=== PATIENT | female | born 1940 | race Caucasian/White ===

== ENCOUNTER 2017-08-13 12:11 | Inpatient (IN) | payer OTHER ==
[~2017-08-13] VITALS: Ht 157.5 cm; Wt 58.4 kg
[~2017-08-13 12:11] MED LIST: PRED50TA PO
[2017-08-13] MEDS ORDERED: SODIUM CHLORIDE 0.9% 1000ML 1,000 ML IV STA (12:53)
--- NOTE | 2017-08-13 12:57 | EMERGENCY ROOM VISIT NOTE ---
History Report prepared by Camilaibheather: Valdo Porras Under the Supervision of: Dr. Boom Oliveira M.D. First contact with patient: 12:48 Chief Complaint: COUGH Stated Complaint: COUGHING,BODY ACHES Nursing Triage Summary: Pt has had a productive cough for the past 3 days. Pt states she has congestion, chills, and runny nose. Pt denies any nausea, vomiting or fever. Pt states she is more SOB with exertion Lungs diminished bilat thru bases Pt HR in the 170's History of Present Illness The patient is a 77 year old female who presents to the Emergency Room with complaints of persistent cough for four days. She states that she has been sick with a cough. She notes shortness of breath with the cough. She notes body aches. She denies any fevers. She reports keeping up with her fluids. She denies any vomiting or diarrhea. She denies any bloody or dark stools. She notes a history of fluttering of the heart, though denies any current cardiac flutters. She denies any chest pain. She is a former smoker 18 years ago. She denies any use of inhalers. She denies taking any blood thinners. Source of History: patient Onset: four days Position: other (global ) Quality: other (cough) Timing: other (persistent) Associated Symptoms: + SOB, No fevers, No chest pain, No vomiting, No diarrhea Note: She notes body aches. She denies any bloody or dark stools or current cardiac flutters. Review of Systems See HPI for pertinent positives & negatives. A total of 10 systems reviewed and were otherwise negative. Past Medical & Surgical Medical Problems: (1) New onset atrial fibrillation (2) No Known Active Medical Problems (3) PNA (pneumonia) Old medical records were reviewed. Nurse's notes were reviewed and I agree with. Family History Diabetes mellitus Hypertension Social History Smoking Status: Former Smoker Smokeless Tobacco Use: No Alcohol Use: none Drug Use: none Marital Status: single Housing Status: lives with family Occupation Status: unemployed Current/Historical Medications Scheduled [Cough Medicine], 1 DOSE PO UD Allergies Coded Allergies: Cefuroxime (Unverified Allergy, Mild, FACIAL SWELLING, 08/13/17) Physical Exam Vital Signs Date Time Temp Pulse Resp B/P (MAP) Pulse Ox O2 Delivery O2 Flow Rate FiO2 08/13/17 14:40 157 154/119 08/13/17 14:05 155 20 136/103 95 Nasal Cannula 08/13/17 12:38 90 Room Air 08/13/17 12:32 167 08/13/17 12:18 36.5 151 20 129/94 92 Room Air Physical Exam General: Non-ill appearing older female in no acute distress. Frequent cough. HEENT: Normal cephalic atraumatic. Pupils are equal round and reactive to light. Extraocular movements are intact. Oropharynx is pink with moist mucous membranes. No swelling of the mouth lips or tongue. Neck: Supple with a midline trachea. No meningeal signs or stiffness, no JVD or bruits. No Stridor. Chest: Clear to auscultation bilaterally. No wheezes or rhonchi. No increased work of breathing. Heart: Tachycardic rate with rapid atrial fibrillation seen on monitor. Abdomen: Soft nontender, nondistended without rebound guarding or rigidity. Extremities: No cyanosis clubbing or mild pedal edema bilaterally. No calf tenderness or assymetry Spine/Back. Non tender to palpation. No CVA tenderness Skin: Good turgor without rashes. Neurologic exam: Cranial nerves two through 12 are intact. Motor and sensation are intact and symmetrical throughout. Medical Decision & Procedures ER Provider Diagnostic Interpretation: Radiology results as stated below per my review and radiologist interpretation: CHEST ONE VIEW PORTABLE CLINICAL HISTORY: 77 years-old Female presenting with CHEST PAIN. TECHNIQUE: Portable upright AP view of the chest was obtained. COMPARISON: 02/27/2006. FINDINGS: Atherosclerosis of aortic arch. Cardiac silhouette top normal in size. New opacity in the right lung base obscuring the right heart margin. Prominence of the right hilum. Osteopenia may be present. Upper abdomen normal. IMPRESSION: 1. Consolidation in the right middle lobe concerning for pneumonia. This should be followed to resolution. 2. Possible right hilar lymphadenopathy, which could be reactive. Electronically signed by: Kendall Farmer M.D. 08/13/2017 1:24 PM Dictated Date/Time: 08/13/2017 1:23 PM Laboratory Results 08/13/17 12:40 Red Blood Count 4.57, Mean Corpuscular Volume 92.3, Mean Corpuscular Hemoglobin 29.5, Mean Corpuscular Hemoglobin Concent 32.0, Mean Platelet Volume 10.5, Neutrophils (%) (Auto) 84.3, Lymphocytes (%) (Auto) 8.8, Monocytes (%) (Auto) 6.1, Eosinophils (%) (Auto) 0.2, Basophils (%) (Auto) 0.2, Neutrophils # (Auto) 10.94, Lymphocytes # (Auto) 1.14, Monocytes # (Auto) 0.79, Eosinophils # (Auto) 0.02, Basophils # (Auto) 0.03 08/13/17 12:40 Test 08/13/17 12:40 08/13/17 12:53 08/13/17 13:17 08/13/17 13:27 White Blood Count 12.97 K/uL (4.8-10.8) Red Blood Count 4.57 M/uL (4.2-5.4) Hemoglobin 13.5 g/dL (12.0-16.0) Hematocrit 42.2 % (37-47) Mean Corpuscular Volume 92.3 fL (80-100) Mean Corpuscular Hemoglobin 29.5 pg (25-34) Mean Corpuscular Hemoglobin Concent 32.0 g/dl (32-36) Platelet Count 196 K/uL (130-400) Mean Platelet Volume 10.5 fL (7.4-10.4) Neutrophils (%) (Auto) 84.3 % Lymphocytes (%) (Auto) 8.8 % Monocytes (%) (Auto) 6.1 % Eosinophils (%) (Auto) 0.2 % Basophils (%) (Auto) 0.2 % Neutrophils # (Auto) 10.94 K/uL (1.4-6.5) Lymphocytes # (Auto) 1.14 K/uL (1.2-3.4) Monocytes # (Auto) 0.79 K/uL (0.11-0.59) Eosinophils # (Auto) 0.02 K/uL (0-0.5) Basophils # (Auto) 0.03 K/uL (0-0.2) RDW Standard Deviation 47.5 fL (36.4-46.3) RDW Coefficient of Variation 14.2 % (11.5-14.5) Immature Granulocyte % (Auto) 0.4 % Immature Granulocyte # (Auto) 0.05 K/uL (0.00-0.02) Prothrombin Time 10.9 SECONDS (9.0-12.0) Prothromb Time International Ratio 1.0 (0.9-1.1) Activated Partial Thromboplast Time 23.1 SECONDS (21.0-31.0) Partial Thromboplastin Ratio 0.9 Anion Gap 7.0 mmol/L (3-11) Est Creatinine Clear Calc Drug Dose 38.1 ml/min Estimated GFR () 60.4 Estimated GFR (Non- 52.1 BUN/Creatinine Ratio 16.4 (10-20) Calcium Level 8.7 mg/dl (8.5-10.1) Total Bilirubin 0.6 mg/dl (0.2-1) Direct Bilirubin 0.2 mg/dl (0-0.2) Aspartate Amino Transf (AST/SGOT) 44 U/L (15-37) Alanine Aminotransferase (ALT/SGPT) 57 U/L (12-78) Alkaline Phosphatase 88 U/L (45-117) Total Creatine Kinase 75 U/L (26-192) Creatine Kinase MB 1.3 ng/ml (0.5-3.6) Total Protein 7.5 gm/dl (6.4-8.2) Albumin 3.3 gm/dl (3.4-5.0) Lipase 98 U/L (73-393) Thyroid Stimulating Hormone (TSH) 1.060 uIu/ml (0.300-4.500) Creatine Kinase MB Ratio (0-3.0) Bedside Troponin I < 0.030 ng/ml (0-0.045) Influenza Type A Antigen Neg for Influ A (NEG) Influenza Type B Antigen Neg for Influ B (NEG) Test 08/13/17 14:24 Bedside Lactic Acid Venous 1.24 mmol/L (0.90-1.70) Laboratory studies as stated above per my review. Medications Administered Medications (Trade) Dose Ordered Sig/Riana Route Start Time Stop Time Status Last Admin Dose Admin Sodium Chloride 1,000 ml @ 999 mls/hr Q1H1M STAT IV 08/13/17 12:53 08/13/17 13:53 DC 08/13/17 12:53 999 MLS/HR Levofloxacin (Levaquin / D5W) 750 mg NOW STAT IV 08/13/17 13:55 08/13/17 13:57 DC 08/13/17 14:40 750 MG Metoprolol Tartrate (Lopressor Iv) 2.5 mg NOW STAT IV 08/13/17 14:25 08/13/17 14:27 DC 08/13/17 14:40 2.5 MG ECG Indication: SOB/dyspnea Rate (beats per minute): 172 Rhythm: atrial fibrillation, other (RVR) Findings: no acute ischemic change, no ectopy Comparison ECG Date: When compared to AFIB has replaced NSR Change: Patient's electrocardiogram was interpreted by me. ED Course 1249: Past medical records reviewed. The patient was evaluated in room C11B, and a complete history and physical examination were performed. 1253: Ordered Sodium Chloride 1,000 ml @ 999 mls/hr IV 1255: Ordered Levofloxacin 750 mg IV 1356: I reassessed the patient at this time. She is resting comfortably. I discussed the results and treatment plan with the patient. I answered all pertaining questions that she had. She expressed understanding and verbalized agreement. The patient will be further evaluated. 1423: I spoke with Dr. Westfall, hospitalist. We discussed the patient's case. The patient will be evaluated by the [facility] for further management. 1425: Ordered Lopressor 2.5 mg IV 1520: I reassessed the patient at this time. Her heart rate has decreased. Medical Decision Differentials include, but are not limited to influenza, PNA, AFIB, sepsis, and electrolyte or metabolic abnormality. This patient comes in as described above. She was placed in room C 11. She comes in with a cough and URI/respiratory symptoms. On exam, she has a hacking cough but appears in no distress. She is not having increasing work of breathing or shortness of breath she denies any chest pain. On the monitor she is found to be in rapid A. fib but denies feeling any palpitations. She says she's been came up with her fluids. She is on no medication and does not go to the doctor so little is known about her medical history at this point. She has no known history of A. fib. IV access established and she was hydrated 1 L IV normal saline bolus. EKG was obtained as well as chest x-ray multiple blood testing. Her chest x-ray shows pneumonia on the right. She was given IV Levaquin. Blood cultures were obtained. White count is elevated. She's had no acute electrolyte or metabolic abnormality. Her heart rate remained significant elevated after the bolus. In light of this, I did give her a gentle small dose of Lopressor 2.5 mg IV. I am concerned that some of the heart rate may be compensatory. With the Lopressor heart rate did come down slightly to the 140s she appears comfortably with this have consulted [facility] hospitalist for further treatment and evaluation inpatient management. Medication Reconcilliation Current Medication List: was personally reviewed by me Blood Pressure Screening Patient's blood pressure: Elevated blood pressure Blood pressure disposition: Elevated BP felt to be situational Consults Time Called: 1355 Consulting Physician: Dr. Westfall, hospitalist Returned Call: [address] Westfall, hospitalist. We discussed the patient's case. The patient will be evaluated by the [facility] for further management. Impression Primary Impression: PNA (pneumonia) Additional Impressions: Rapid atrial fibrillation New onset atrial fibrillation Scribe Attestation The scribe's documentation has been prepared under my direction and personally reviewed by me in its entirety. I confirm that the note above accurately reflects all work, treatment, procedures, and medical decision making performed by me. Departure Information Dispostion Being Evaluated By Hospitalist Referrals No Doctor, Assigned (PCP) Patient Instructions [facility] Problem Qualifiers
[2017-08-13 13:14] LABS: BASO % 0.2 %; BASO ABS # 0.03 K/uL (0-0.2); EOS % 0.2 %; EOS ABS # 0.02 K/uL (0-0.5); HEMATOCRIT 42.2 % (37-47); HEMOGLOBIN 13.5 g/dL (12.0-16.0); IG# 0.05 K/uL (0.00-0.02); LYMPH % 8.8 %; LYMPH ABS # 1.14 K/uL (1.2-3.4); MEAN CELL VOLUME 92.3 fL (80-100); MEAN CORPUSCULAR HEMOGLOBIN 29.5 pg (25-34); MEAN PLATELET VOLUME 10.5 fL (7.4-10.4); MONO % 6.1 %; MONO ABS # 0.79 K/uL (0.11-0.59); NEUT % 84.3 %; NEUT ABS # 10.94 K/uL (1.4-6.5); PLATELET COUNT 196 K/uL (130-400); RED CELL DISTRIBUTION WIDTH CV 14.2 % (11.5-14.5); RED CELL DISTRIBUTION WIDTH SD 47.5 fL (36.4-46.3); WHITE BLOOD COUNT 12.97 K/uL (4.8-10.8)
[2017-08-13 13:22] LABS: CALCIUM 8.7 mg/dl (8.5-10.1); CREATININE 1.04 mg/dl (0.60-1.20); POTASSIUM 4.1 mmol/L (3.5-5.1)
--- NOTE | 2017-08-13 13:25 | DIAGNOSTIC IMAGING REPORT ---
CHEST ONE VIEW PORTABLE CLINICAL HISTORY: 77 years-old Female presenting with CHEST PAIN. TECHNIQUE: Portable upright AP view of the chest was obtained. COMPARISON: 02/27/2006. FINDINGS: Atherosclerosis of aortic arch. Cardiac silhouette top normal in size. New opacity in the right lung base obscuring the right heart margin. Prominence of the right hilum. Osteopenia may be present. Upper abdomen normal. IMPRESSION: 1. Consolidation in the right middle lobe concerning for pneumonia. This should be followed to resolution. 2. Possible right hilar lymphadenopathy, which could be reactive. Electronically signed by: Kendall Farmer M.D. 08/13/2017 1:24 PM Dictated Date/Time: 08/13/2017 1:23 PM
[2017-08-13 13:26] LABS: PTT PATIENT 23.1 SECONDS (21.0-31.0); TOTAL PROTEIN 7.5 gm/dl (6.4-8.2)
[2017-08-13] MEDS ORDERED: LEVAQUIN 750MG / 150ML D5W IV STA (13:55)
[2017-08-13 14:00] LABS: ALBUMIN 3.3 gm/dl (3.4-5.0); CKMB 1.3 ng/ml (0.5-3.6)
[2017-08-13] MEDS ORDERED: COUGH MEDICINE PO (14:03)
[2017-08-13 14:12] LABS: INFLUENZA B ANTIGEN Neg for Influ B (NEG)
[2017-08-13] MEDS ORDERED: METOPROLOL TARTRATE 1 MG/ML VIAL IV STA ×2 (14:25→17:52)
[2017-08-13] MEDS ORDERED: ACETAMINOPHEN 325 MG TAB PO PRN (15:15)
[2017-08-13] MEDS ORDERED: ONDANSETRON INJ 2 MG/ML 2 ML VIAL IV PRN (15:15)
[2017-08-13] MEDS ORDERED: METOPROLOL TARTRATE 1 MG/ML VIAL IV ONE ×2 (15:30→17:30)
[2017-08-13] MEDS ORDERED: HEPARIN 25000 UNIT/500 ML D5W ONE (15:55)
[2017-08-13] MEDS ORDERED: HEPARIN SOD 5000 UNIT/0.5 ML CARP ONE (15:55)
[2017-08-13 16:56] VITALS: BP 139/87; PULSE 150; TEMP 37.2; O2SAT 93; Ht 157.5 cm; Wt 58.4 kg
[2017-08-13] MEDS ORDERED: NURSING VERBAL MED ORDER ONE (17:15)
[2017-08-13] MEDS ORDERED: LEVOFLOXACIN CONSULT ACTIVE PRN (17:15)
--- NOTE | 2017-08-13 17:51 | History and Physical ---
History & Physical Date & Time of Service: Aug 13, 2017 at 17:38 Chief Complaint: New Onset Atrial Fibrillation, Pna Primary Care Physician: No Doctor, Assigned History of Present Illness Source: patient, clinic records, hospital records This is a 77yo F with no known PMH who presents with worsening cough x 4 days. Patient states that over the past few days, she has become SOB with movement. Denies history of asthma, COPD. Does not use home O2. Smoking history but quit in 1974. Does not have a PCP and has not seen a provider in years. Endorses associated chills and body aches but denies fever, sore throat, CP, abd pain, nausea, vomiting or LE swelling. Has been using cough drops and OTC cold medicine (unknown what kind) but does not take any medications regularly. Was found to be tachycardic to 155 in the ED and EKG shows A Fib with RVR. States that she has experienced heart palpitations in the past but denies them currently. Denies a previous diagnosis of A Fib. No lightheadedness, visual changes, chest pain. No history of bleeding. Lives with his sister. Past Medical/Surgical History No known PMH. Family History Diabetes mellitus Hypertension Social History Smoking Status: Former Smoker Smokeless Tobacco Use: No Drug Use: none Marital Status: single Housing status: lives with family Occupational Status: unemployed Multi-Drug Resistant Organisms History of MDRO: No Allergies Coded Allergies: Cefuroxime (Unverified Allergy, Mild, FACIAL SWELLING, 08/13/17) Home Medications Scheduled [Cough Medicine], 1 DOSE PO UD Review of Systems Ten systems reviewed and negative except as noted in the HPI. Physical Exam Vital Signs Date Time Temp Pulse Resp B/P (MAP) Pulse Ox O2 Delivery O2 Flow Rate FiO2 08/13/17 16:56 37.2 150 139/87 93 Nasal Cannula 2.0 08/13/17 16:18 135 20 131/100 99 Nasal Cannula 2.0 08/13/17 16:04 155 142/60 08/13/17 14:40 157 154/119 08/13/17 14:05 155 20 136/103 95 Nasal Cannula 08/13/17 12:38 90 Room Air 08/13/17 12:32 167 08/13/17 12:18 36.5 151 20 129/94 92 Room Air General Appearance: WD/WN, no apparent distress, + pertinent finding ( Breathing comfortably on NC O2. Becomes despneic when asked to sit upright during exam. ) Head: normocephalic, atraumatic Eyes: normal inspection, PERRL, sclerae normal ENT: normal ENT inspection, hearing grossly normal, pharynx normal (moist mucous membranes ) Neck: supple, no adenopathy, thyroid normal, trachea midline Respiratory/Chest: chest non-tender, lungs clear, no respiratory distress, no accessory muscle use, + wheezing (Diffuse, bilateral ) Cardiovascular: no murmur, normal peripheral pulses, + tachycardia Abdomen/GI: non tender, soft Back: normal inspection Extremities/Musculoskelatal: normal inspection, no calf tenderness, no pedal edema Neurologic/Psych: no motor/sensory deficits, alert, normal mood/affect, oriented x 3 Skin: normal color, warm/dry Diagnostics Laboratory Results Results Past 24 Hours Test 08/13/17 12:40 08/13/17 12:53 08/13/17 13:17 08/13/17 13:27 Range/Units White Blood Count 12.97 4.8-10.8 K/uL Red Blood Count 4.57 4.2-5.4 M/uL Hemoglobin 13.5 12.0-16.0 g/dL Hematocrit 42.2 37-47 % Mean Corpuscular Volume 92.3 80-100 fL Mean Corpuscular Hemoglobin 29.5 25-34 pg Mean Corpuscular Hemoglobin Concent 32.0 32-36 g/dl Platelet Count 196 130-400 K/uL Mean Platelet Volume 10.5 7.4-10.4 fL Neutrophils (%) (Auto) 84.3 % Lymphocytes (%) (Auto) 8.8 % Monocytes (%) (Auto) 6.1 % Eosinophils (%) (Auto) 0.2 % Basophils (%) (Auto) 0.2 % Neutrophils # (Auto) 10.94 1.4-6.5 K/uL Lymphocytes # (Auto) 1.14 1.2-3.4 K/uL Monocytes # (Auto) 0.79 0.11-0.59 K/uL Eosinophils # (Auto) 0.02 0-0.5 K/uL Basophils # (Auto) 0.03 0-0.2 K/uL RDW Standard Deviation 47.5 36.4-46.3 fL RDW Coefficient of Variation 14.2 11.5-14.5 % Immature Granulocyte % (Auto) 0.4 % Immature Granulocyte # (Auto) 0.05 0.00-0.02 K/uL Prothrombin Time 10.9 9.0-12.0 SECONDS Prothromb Time International Ratio 1.0 0.9-1.1 Activated Partial Thromboplast Time 23.1 21.0-31.0 SECONDS Partial Thromboplastin Ratio 0.9 Sodium Level 139 136-145 mmol/L Potassium Level 4.1 3.5-5.1 mmol/L Chloride Level 104 98-107 mmol/L Carbon Dioxide Level 28 21-32 mmol/L Anion Gap 7.0 3-11 mmol/L Blood Urea Nitrogen 17 7-18 mg/dl Creatinine 1.04 0.60-1.20 mg/dl Est Creatinine Clear Calc Drug Dose 38.1 ml/min Estimated GFR () 60.4 Estimated GFR (Non- 52.1 BUN/Creatinine Ratio 16.4 10-20 Random Glucose 99 70-99 mg/dl Calcium Level 8.7 8.5-10.1 mg/dl Total Bilirubin 0.6 0.2-1 mg/dl Direct Bilirubin 0.2 0-0.2 mg/dl Aspartate Amino Transf (AST/SGOT) 44 15-37 U/L Alanine Aminotransferase (ALT/SGPT) 57 12-78 U/L Alkaline Phosphatase 88 45-117 U/L Total Creatine Kinase 75 26-192 U/L Creatine Kinase MB 1.3 0.5-3.6 ng/ml Creatine Kinase MB Ratio 1.7 0-3.0 Total Protein 7.5 6.4-8.2 gm/dl Albumin 3.3 3.4-5.0 gm/dl Lipase 98 73-393 U/L Thyroid Stimulating Hormone (TSH) 1.060 0.300-4.500 uIu/ml Bedside Troponin I < 0.030 0-0.045 ng/ml Influenza Type A Antigen Neg for Influ A NEG Influenza Type B Antigen Neg for Influ B NEG Test 08/13/17 14:24 Range/Units Bedside Lactic Acid Venous 1.24 0.90-1.70 mmol/L Microbiology Results 08/13/17 Blood Culture, Received Pending 08/13/17 Blood Culture, Received Pending Diagnostic Radiology CXR: IMPRESSION: 1. Consolidation in the right middle lobe concerning for pneumonia. This should be followed to resolution. 2. Possible right hilar lymphadenopathy, which could be reactive. EKG Atrial fibrillation with rapid ventricular response at 172 bpm. Impression Assessment and Plan This is a 77yo F with no known PMH who presents with worsening cough x 4 days and was found to have R middle lobe PNA and A Fib with RVR. Community acquired PNA: -Cough, SOB -CXR with R middle lobe consolidation -Levaquin initiated in ED. Continue (renally dosed) -Xopenex nebs Q6H -Prednisone 40mg daily x 5 days -Supplemental O2 -IVF resuscitation New onset A Fib with RVR: -EKG with rapid A fib at 172 bpm -Electrolytes, TSH wnl -Given Lopressor IV 2.5mg x 2, 5mg x 1 -Metoprolol tartrate 25mg BID ordered -Continue monitoring on telemetry -IV heparin initiated -Cardio consult DVT Ppx: IV heparin Code status: FULL PCP: None. Will need to be assigned a PCP upon discharge. Dispo: Admitted to telemetry. Discharge planning ordered. Patient seen in collaboration with Dr. Westfall. Please see addendum. ADDENDUM: This is a 77 year old female with no significant PMH; does not follow with a physician; presented due to worsening shortness of breath. c/o wheezing, productive cough, weakness. Presented to the ED, found to be in A. Fib with RVR, states she has had no chest pain, no palpitations. CXR performed, showing consolidation of the R middle lobe. Exam: significant tachycardia on cardiac exam; end expiratory wheezing on lung exam diffusely. Plan: New Onset A. fib with RVR patient with HRs in the 160s on admission down to 120s currently has been given IV Lopressor 5mg x2 will give one more dose of IV Lopressor will add Lopressor (if there is concern for lung disease, may consider switching this) IV heparin ggt for now cardiology consulted for further input CAP Possible COPD exacerbation will change Levaquin to Augmentin for pneumonia add nebulizers (Xopenex), prednisone 40mg x5 days patient has a remote smoking history, but no longer smokes Level of Care Telemetry Advanced Directives Existing Living Will: No Existing Power of General Dentist: No Resuscitation Status FULL RESUSCITATION VTE Prophylaxis VTE Risk Assessment Done? Y/N: Yes Risk Level: Moderate Given or contraindicated: Other Anticoagulation
[2017-08-13] MEDS ORDERED: SODIUM CHLORIDE 0.9% 1000ML 1,000 ML IV SCH (18:00)
[2017-08-13] MEDS ORDERED: DILTIAZEM BOLUS / DRIP IV STA (18:27)
[2017-08-13] MEDS ORDERED: METOPROLOL TARTRATE 25 MG TAB PO ONE (18:27)
--- NOTE | 2017-08-13 18:33 | Cardiology Progress Note ---
Cardiology Progress Note Date of Service Aug 13, 2017. Cardiology Progress Note Received page regarding routine consult for atrial fibrillation with RVR. Patient's charge, telemetry, vitals reviewed remotely from my home. I called and spoke to nurse covering pt on the telephone. Pt admitted for pneumonia, AF. On arrival to PCU AF rates of 130-150 bpm noted then with stable BP. Received 5 mg IV metoprolol at 1800, and rates down to 117-120 on telemetry at present and pt is reportedly sleeping. Plan: Change metoprolol 25 mg BID , to Q 6 with first dose now, next at midnight, holds for HR <60 , SBP < 100 mm Hg. Start diltiazem infusion, no bolus, start 5 mg /hr with titration orders to keep HR < 100 bpm, and SBP >95 mm Hg. Discussed with nursing by phone. Will assess pt in person in am.
[2017-08-13 18:38] LABS: INFLUENZA A PCR Neg for Influ A (NEG); INFLUENZA B PCR Neg for Influ B (NEG)
[2017-08-13] MEDS ORDERED: DILTIAZEM HCL INJ 125 MG in DEXTROSE 5% 100ML IV PRN (18:45)
[2017-08-13 19:47] VITALS: PULSE 108; O2SAT 96
[2017-08-13] MEDS ORDERED: INFLUENZA VIRUS QUAD VACCINE 0.5 ML SYR IM. ONE (20:00)
[2017-08-13] MEDS ORDERED: INFLUENZA ADMINISTRATION CHARGE ONE (20:00)
[2017-08-13] MEDS ORDERED: PNEUMOCOCCAL POLYSACCHARIDES 25 MCG/0.5 ML VIAL/SYR IM. ONE (20:00)
[2017-08-13] MEDS ORDERED: PNEUMOCOCCAL ADMINISTRATION CHARGE ONE (20:00)
[2017-08-13] MEDS ORDERED: LEVALBUTEROL/IPRATROPIUM NEB INH STA (20:20)
[2017-08-13 20:27] VITALS: O2SAT 96
[2017-08-13] MEDS ORDERED: LEVALBUTEROL/IPRATROPIUM NEB INH PRN (20:30)
[2017-08-13] MEDS ORDERED: LEVALBUTEROL 1.25MG/0.5ML NEB INH STA (20:34)
[2017-08-13] MEDS ORDERED: IPRATROPIUM BROMIDE NEB SOLN 0.02% 2.5 ML VIAL INH STA (20:34)
--- NOTE | 2017-08-13 20:39 | DIAGNOSTIC IMAGING REPORT ---
CHEST ONE VIEW PORTABLE CLINICAL HISTORY: 77 years-old Female presenting with wheeze. TECHNIQUE: Portable upright AP view of the chest was obtained. COMPARISON: 08/13/2017 at 1:04 PM. FINDINGS: Atherosclerosis of aortic arch. Cardiac silhouette enlarged. Lungs are hyperinflated. Persistent obscuration of the right heart border with in right middle lobe opacity, stable to slightly increased. Trace bilateral pleural effusions may be present. No pneumothorax. Osseous structures normal. Upper abdomen normal. IMPRESSION: 1. Stable to slightly increased dense right middle lobe consolidation. 2. Possible trace bilateral pleural effusions. 3. Hyperinflation suggests underlying emphysema. Electronically signed by: Kendall Farmer M.D. 08/13/2017 8:38 PM Dictated Date/Time: 08/13/2017 8:36 PM
[2017-08-13] MEDS ORDERED: IPRATROPIUM BROMIDE NEB SOLN 0.02% 2.5 ML VIAL INH PRN (20:45)
[2017-08-13] MEDS ORDERED: LEVALBUTEROL 1.25MG/0.5ML NEB INH PRN (20:45)
[2017-08-13] MEDS ORDERED: LEVALBUTEROL 0.63MG/3 ML NEB INH SCH (21:00)
[2017-08-13] MEDS ORDERED: LEVALBUTEROL/IPRATROPIUM NEB INH SCH (21:00)
[2017-08-13] MEDS ORDERED: METOPROLOL TARTRATE 25 MG TAB PO SCH (21:00)
[2017-08-13] MEDS ORDERED: IPRATROPIUM BROMIDE NEB SOLN 0.02% 2.5 ML VIAL INH SCH (21:00)
[2017-08-13] MEDS ORDERED: METHYLPREDNISOLONE IV 40 MG in SYRINGE 0 ML IV ONE (21:15)
[2017-08-13 23:30] VITALS: BP 114/73; PULSE 78; TEMP 36.5; O2SAT 94
[2017-08-13] MEDS: METOPROLOL TARTRATE 25 MG TAB PO SCH (23:32)
[2017-08-13] MEDS ORDERED: FUROSEMIDE INJ 20 MG in SYRINGE 0 ML IV STA (23:33)
[2017-08-13] MEDS ORDERED: FUROSEMIDE 40 MG/4 ML VIAL IV STA (23:41)
[2017-08-13 23:48] LABS: PTT PATIENT 57.4 SECONDS (21.0-31.0)
[2017-08-14] VITALS (15 sets, daily range): BP systolic 80–109; BP diastolic 46–74; PULSE 72–103; TEMP 36.5–36.9; O2SAT 93–96
[2017-08-14 05:01] LABS: HEMATOCRIT 41.8 % (37-47); HEMOGLOBIN 13.6 g/dL (12.0-16.0); MEAN CELL VOLUME 92.3 fL (80-100); MEAN CORPUSCULAR HGB CONC 32.5 g/dl (32-36); MEAN PLATELET VOLUME 11.2 fL (7.4-10.4); PLATELET COUNT 160 K/uL (130-400); RED CELL DISTRIBUTION WIDTH CV 14.1 % (11.5-14.5); RED CELL DISTRIBUTION WIDTH SD 47.7 fL (36.4-46.3); WHITE BLOOD COUNT 14.72 K/uL (4.8-10.8)
[2017-08-14 05:22] LABS: CALCIUM 8.4 mg/dl (8.5-10.1); CREATININE 0.99 mg/dl (0.60-1.20); POTASSIUM 4.4 mmol/L (3.5-5.1)
[2017-08-14] MEDS: METOPROLOL TARTRATE 25 MG TAB PO SCH ×4 (05:56→23:54)
[2017-08-14] MEDS: ASPIRIN 81 MG ECTAB PO SCH (07:38)
[2017-08-14] MEDS: AMOXICILLIN/CLAVULANATE TAB 875 MG TAB PO SCH ×2 (07:38→16:50)
[2017-08-14] MEDS: PANTOprazole SOD 40 MG TAB PO SCH (07:38)
--- NOTE | 2017-08-14 08:46 | ECHOCARDIOGRAM REPORT ---
*NOTICE TO RECEIVING LIBERTARIAN AGENCY This information is strictly Confidential and protected under [place] law. [place] law prohibits you from making any further disclosure of this information unless further disclosure is expressly permitted by the written consent of the person to whom it pertains or is authorized by law. A general authorization for the release of medical or other information is not sufficient for this purpose. Hospital accepts no responsibility if the information is made available to any other person, INCLUDING THE PATIENT. Interpretation Summary * Name: CONCHITA GREGORY Study Date: 08/14/2017 06:32 AM BP: 109/74 mmHg * Patient Location: C.2T\S\S234\S\1 HR: 89 * : 1940 (M/d/yyy) Gender: Female Height: 62 in * Age: 77 yrs Ethnicity: [place] Weight: 126 lb * Ordering Physician: Olena Westfall * Referring Physician: Self, Referred * Performed By: Ana Maria Ryan RDCS * * Reason For Study: Atrial Fibrillation * BSA: 1.6 m2 * The study was technically adequate. * -- Conclusions -- * Atrial fibrillation with controlled ventricular response was present during the echocardiogram examination. * There is no prio study available for comparison. * The left atrial size is normal. * The right atrium is moderately dilated. * Aortic valve sclerosis mild, without significant aortic valvular stenosis. * There is mild to moderate mitral regurgitation. * There is moderate tricuspid regurgitation. * The qualitative LV ejection fraction=55% * The right ventricle is normal in size and function. * Doppler findings do not suggest pulmonary hypertension. Procedure Details * A complete two-dimensional transthoracic echocardiogram was performed (2D, M-mode, Doppler and color flow Doppler). Left Ventricle * The left ventricle is normal in size. * There is normal left ventricular wall thickness. * Left ventricular systolic function is normal. * The qualitative LV ejection fraction=55% * The left ventricular wall motion is normal. Right Ventricle * The right ventricle is normal in size and function. Atria * The left atrial size is normal. * A prominent eustachian valve is noted. * The right atrium is moderately dilated. * There is no evidence of atrial septal defect, but resolution does not allow assessment for a patent foramen ovale. Mitral Valve * The mitral valve is normal. * There is no mitral valve stenosis. * There is mild to moderate mitral regurgitation. Tricuspid Valve * The tricuspid valve is normal. * There is no tricuspid stenosis. * There is moderate tricuspid regurgitation. * Doppler findings do not suggest pulmonary hypertension. Aortic Valve * The aortic valve is trileaflet. * Aortic valve sclerosis mild, without significant aortic valvular stenosis. * Aortic stenosis is absent. * There is no significant aortic regurgitation. Pulmonic Valve * The pulmonary valve is not well seen, but the Doppler examination is normal without significant regurgitation or stenosis. Great Vessels * The aortic root and proximal ascending aorta are normal sized. Pericardium/Pleural * There is no pericardial effusion. * There is a small righ plearal effusion. Great Vessels * Normal inferior vena cava size and collapsability with sniff indicates a normal right atrial pressure of 3 mmHg MMode 2D Measurements and Calculations IVSd 0.80 cm IVSs 0.97 cm LVIDd 3.9 cm LVIDs 2.4 cm LVPWd 0.78 cm LVPWs 1.3 cm IVS/LVPW 1.0 FS 37.0 % EDV(Teich) 64.8 ml ESV(Teich) 21.0 ml EF(Teich) 67.5 % EDV(cubed) 58.1 ml ESV(cubed) 14.5 ml EF(cubed) 75.0 % % IVS thick 21.2 % % LVPW thick 72.9 % LV mass(C)d 87.1 grams LV mass(C)dI 55.5 grams/m\S\2 LV mass(C)s 78.1 grams LV mass(C)sI 49.7 grams/m\S\2 SV(Teich) 43.8 ml SI(Teich) 27.9 ml/m\S\2 SV(cubed) 43.5 ml SI(cubed) 27.7 ml/m\S\2 Ao root diam 3.1 cm Ao root area 7.5 cm\S\2 ACS 1.5 cm LA dimension 3.9 cm LA/Ao 1.3 LVAd ap4 19.1 cm\S\2 LVLd ap4 6.3 cm EDV(MOD-sp4) 49.1 ml EDV(sp4-el) 49.4 ml LVAs ap4 11.5 cm\S\2 LVLs ap4 5.4 cm ESV(MOD-sp4) 21.5 ml ESV(sp4-el) 20.7 ml EF(MOD-sp4) 56.2 % EF(sp4-el) 58.1 % LVAd ap2 24.4 cm\S\2 LVLd ap2 6.7 cm EDV(MOD-sp2) 76.3 ml EDV(sp2-el) 75.8 ml LVAs ap2 13.2 cm\S\2 LVLs ap2 5.6 cm ESV(MOD-sp2) 27.7 ml ESV(sp2-el) 26.6 ml EF(MOD-sp2) 63.7 % EF(sp2-el) 64.9 % LVLd %diff 6.2 % EDV(MOD-bp) 63.4 ml LVLs %diff 2.7 % ESV(MOD-bp) 24.7 ml EF(MOD-bp) 61.1 % SV(MOD-sp4) 27.6 ml SI(MOD-sp4) 17.6 ml/m\S\2 SV(MOD-sp2) 48.6 ml SI(MOD-sp2) 30.9 ml/m\S\2 SV(MOD-bp) 38.7 ml SI(MOD-bp) 24.6 ml/m\S\2 SV(sp4-el) 28.7 ml SI(sp4-el) 18.3 ml/m\S\2 SV(sp2-el) 49.2 ml SI(sp2-el) 31.3 ml/m\S\2 Doppler Measurements and Calculations MV E max liza 117.8 cm/sec MV dec time 0.23 sec Ao V2 max 100.0 cm/sec Ao max PG 4.0 mmHg Ao max PG (full) 1.6 mmHg AI max liza 307.7 cm/sec AI max PG 38.7 mmHg AI dec slope 242.5 cm/sec\S\2 AI P1/2t 371.6 msec LV V1 max PG 2.4 mmHg LV V1 max 77.8 cm/sec MR max liza 411.7 cm/sec MR max PG 67.8 mmHg MR mean liza 337.4 cm/sec MR mean PG 50.1 mmHg MR VTI 142.2 cm MR PISA 2.0 cm\S\2 MR PISA radius 0.56 cm PA V2 max 62.2 cm/sec PA max PG 1.6 mmHg TR max liza 161.5 cm/sec
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
[2017-08-14] MEDS ORDERED: DOXYCYCLINE HYCLATE 100 MG CAP PO ONE (14:00)
[2017-08-14] MEDS: WARFARIN SOD 5 MG TAB PO SCH (16:52)
[2017-08-14] MEDS: HEPARIN 25,000 UNIT/500ML D5W 500 ML IV PRN (17:06)
--- NOTE | 2017-08-14 18:37 | Progress Note ---
Internal Med Progress Note Date of Service: Aug 14, 2017. Provider Documentation: SUBJECTIVE: sitting on the chair feeling sick for last few days has cough felt palpitations yesterday feeling better today afebrile lives with her sister and family OBJECTIVE: Vital Signs-as noted below Exam: General-alert and oriented. old and frail ENT-normal hearing Neck-no neck masses Lungs-cta b/l diminished breath sounds, no wheezing or crackles Heart-s1 and s2 heard irregular no murmurs Abdomen-soft bowel sounds present non tender no distension Extremities-no edema no erythema Neuro-alert and awake moves extremities Lab data as noted below. ASSESSMENT & PLAN: This is a 77yo F with no known PMH who presents with worsening cough x 4 days and was found to have R middle lobe PNA and A Fib with RVR. Community acquired PNA: Presents with Cough, SOB CXR with R middle lobe consolidation Levaquin initiated in ED. Continue (renally dosed) started on Xopenex nebs Q6H- will make it inhalers in am if stable Prednisone 40mg daily x 5 days Supplemental O2 currently on po Augmentin and doxycycline- will complete 7-10 day course New onset A Fib with RVR: EKG with rapid A fib at 172 bpm Electrolytes, TSH wnl was on Cardizem drip currently on Lopressor 25mg q 6hrs iv heparin bridge and started on Coumadin. f/u inr. cardiology on board echo-mild to moderate MR otherwise unremarkable study monitor in tele DVT PROPHYLAXIS iv heparin DISPOSITION monitor in tele pt/ot when stable social service for d/c planning Vital Signs: Date Time Temp Pulse Resp B/P (MAP) Pulse Ox O2 Delivery O2 Flow Rate FiO2 08/14/17 16:53 107/68 (81) 08/14/17 16:00 96 Nasal Cannula 2.0 08/14/17 15:15 36.6 85 16 97/64 (75) 96 Nasal Cannula 3.0 08/14/17 14:06 99/63 (75) 08/14/17 12:00 96 Nasal Cannula 2.0 08/14/17 11:32 36.6 75 18 89/52 (64) 95 4.0 80/46 (57) 08/14/17 08:00 96 Nasal Cannula 2.0 08/14/17 07:41 36.5 72 20 108/63 (78) 94 4.0 08/14/17 04:05 96 Nasal Cannula 2.0 08/14/17 03:30 36.5 89 20 109/74 (86) 94 Nasal Cannula 3.0 08/14/17 00:03 96 Nasal Cannula 2.0 08/13/17 23:30 36.5 78 16 114/73 (87) 94 Nasal Cannula 3.0 08/13/17 20:27 96 Nasal Cannula 2.0 08/13/17 19:47 108 22 96 Nasal Cannula 2.0 Lab Results: Results Past 24 Hours Test 08/13/17 22:47 08/14/17 04:43 Range/Units Activated Partial Thromboplast Time 57.4 59.0 21.0-31.0 SECONDS Partial Thromboplastin Ratio 2.2 2.3 Pro-B-Type Natriuretic Peptide 4045 0-1800 pg/ml White Blood Count 14.72 4.8-10.8 K/uL Red Blood Count 4.53 4.2-5.4 M/uL Hemoglobin 13.6 12.0-16.0 g/dL Hematocrit 41.8 37-47 % Mean Corpuscular Volume 92.3 80-100 fL Mean Corpuscular Hemoglobin 30.0 25-34 pg Mean Corpuscular Hemoglobin Concent 32.5 32-36 g/dl RDW Standard Deviation 47.7 36.4-46.3 fL RDW Coefficient of Variation 14.1 11.5-14.5 % Platelet Count 160 130-400 K/uL Mean Platelet Volume 11.2 7.4-10.4 fL Sodium Level 138 136-145 mmol/L Potassium Level 4.4 3.5-5.1 mmol/L Chloride Level 103 98-107 mmol/L Carbon Dioxide Level 28 21-32 mmol/L Anion Gap 7.0 3-11 mmol/L Blood Urea Nitrogen 17 7-18 mg/dl Creatinine 0.99 0.60-1.20 mg/dl Est Creatinine Clear Calc Drug Dose 38.2 ml/min Estimated GFR () 64.2 Estimated GFR (Non- 55.4 BUN/Creatinine Ratio 17.4 10-20 Random Glucose 150 70-99 mg/dl Calcium Level 8.4 8.5-10.1 mg/dl
[2017-08-14] MEDS: DOXYCYCLINE HYCLATE 100 MG CAP PO SCH (19:36)
[2017-08-15] VITALS (12 sets, daily range): BP systolic 95–120; BP diastolic 62–68; PULSE 83–105; TEMP 36.4–36.8; O2SAT 92–96
[2017-08-15 04:52] LABS: HEMATOCRIT 37.3 % (37-47); IG# 0.07 K/uL (0.00-0.02); LYMPH % 5.1 %; LYMPH ABS # 0.83 K/uL (1.2-3.4); MEAN CELL VOLUME 90.5 fL (80-100); MEAN CORPUSCULAR HEMOGLOBIN 29.1 pg (25-34); MEAN CORPUSCULAR HGB CONC 32.2 g/dl (32-36); MEAN PLATELET VOLUME 11.1 fL (7.4-10.4); MONO % 5.7 %; MONO ABS # 0.94 K/uL (0.11-0.59); NEUT % 88.8 %; NEUT ABS # 14.58 K/uL (1.4-6.5); PLATELET COUNT 162 K/uL (130-400); RED CELL DISTRIBUTION WIDTH CV 14.3 % (11.5-14.5); RED CELL DISTRIBUTION WIDTH SD 47.3 fL (36.4-46.3); WHITE BLOOD COUNT 16.42 K/uL (4.8-10.8)
[2017-08-15 05:18] LABS: PTT PATIENT 95.6 SECONDS (21.0-31.0)
[2017-08-15 05:29] LABS: CALCIUM 8.1 mg/dl (8.5-10.1); CREATININE 1.26 mg/dl (0.60-1.20); POTASSIUM 4.2 mmol/L (3.5-5.1)
[2017-08-15] MEDS: METOPROLOL TARTRATE 25 MG TAB PO SCH ×3 (06:00→16:31)
[2017-08-15] MEDS: AMOXICILLIN/CLAVULANATE TAB 875 MG TAB PO SCH (07:45)
[2017-08-15] MEDS: DOXYCYCLINE HYCLATE 100 MG CAP PO SCH (07:45)
[2017-08-15] MEDS: PANTOprazole SOD 40 MG TAB PO SCH (07:45)
[2017-08-15] MEDS: ASPIRIN 81 MG ECTAB PO SCH (07:45)
--- NOTE | 2017-08-15 09:31 | Cardiology Follow-Up ---
Subjective General Date of Service: Aug 15, 2017. Chief Complaint: Atrial fibrillation Pt evaluation today including: conversation w/ patient, physical exam, chart review, lab review, review of studies, review of inpatient medication list History of Present Illness Patient seen and examined. Ongoing cough productive of clear phlegm and dyspnea. Sweats last night. Afebrile. No further palpitations (chest flutters) Telemetry: Atrial fibrillation currently in the 90's. Rates relatively well controlled overnight. Mildly elevated this AM. Metoprolol held for hypotension at ~0600. Allergies Coded Allergies: Cefuroxime (Unverified Allergy, Mild, FACIAL SWELLING, 08/13/17) Social History Smoking Status: Former Smoker Hx Alcohol Use - Type And Amou: No Hx Substance Use - Type And Am: No Problem List Medical Problems: (1) Rapid atrial fibrillation Status: Acute Physical Exam Vital Signs Last Vital Signs Documentation Date Time Temp Pulse Resp B/P (MAP) Pulse Ox O2 Delivery O2 Flow Rate FiO2 08/15/17 08:00 96 Nasal Cannula 2.0 08/15/17 07:47 36.5 95 19 106/68 (81) Physical Exam Constitutional: General Apperance: too thin Level of Distress: NAD Psychiatric: Mental Status: active & alert Lungs: Auscultation: no wheezing, no rales/crackles, deminished air movement, decreased breath sounds, rhonchi Cardiovascular: Heart Auscultation: irregular rate rhythm Abdomen: Bowel Sounds: normal Extremities: no cyanosis, no edema, no clubbing Neurologic: Cranial Nerves: grossly intact Assessment and Plan Assessment and Plan New onset symptomatic atrial fibrillation of unknown duration in a 77 year old female admitted with significant right middle lobe consolidation/pneumonia and underlying emphysema.[id number]=6. Labs this morning suggestive of mild intravascular volume depletion. RECOMMENDATIONS: 1. Continue metoprolol tartrate for rate control 2. Heparin bridge to proper Coumadin anticoagulation. INR Goal 2.0 to 3.0. 3. Community acquired pneumonia treatment as per the Hospitalist Service CARDIOLOGY ATTENDING ADDENDUM: The patient was seen and personally examined. Agree with Dusty Obregon PA-C's findings and plans as documented above. S: patient feeling better from a cough standpoint. She was speaking with her niece on the telephone when I arrived. Telem: AF, 90-101 bpm. Exam: irreg rhythm, 1/6 M Impression: as above. Plan: heparin to coumadin. Metoprolol for rate control. Repeat EKG in am. Laboratory Results Last 24 Hours Test 08/15/17 04:22 White Blood Count 16.42 K/uL Red Blood Count 4.12 M/uL Hemoglobin 12.0 g/dL Hematocrit 37.3 % Mean Corpuscular Volume 90.5 fL Mean Corpuscular Hemoglobin 29.1 pg Mean Corpuscular Hemoglobin Concent 32.2 g/dl Platelet Count 162 K/uL Mean Platelet Volume 11.1 fL Neutrophils (%) (Auto) 88.8 % Lymphocytes (%) (Auto) 5.1 % Monocytes (%) (Auto) 5.7 % Eosinophils (%) (Auto) 0.0 % Basophils (%) (Auto) 0.0 % Neutrophils # (Auto) 14.58 K/uL Lymphocytes # (Auto) 0.83 K/uL Monocytes # (Auto) 0.94 K/uL Eosinophils # (Auto) 0.00 K/uL Basophils # (Auto) 0.00 K/uL RDW Standard Deviation 47.3 fL RDW Coefficient of Variation 14.3 % Immature Granulocyte % (Auto) 0.4 % Immature Granulocyte # (Auto) 0.07 K/uL Activated Partial Thromboplast Time 95.6 SECONDS Partial Thromboplastin Ratio 3.7 Sodium Level 135 mmol/L Potassium Level 4.2 mmol/L Chloride Level 101 mmol/L Carbon Dioxide Level 28 mmol/L Anion Gap 6.0 mmol/L Blood Urea Nitrogen 40 mg/dl Creatinine 1.26 mg/dl Est Creatinine Clear Calc Drug Dose 30.1 ml/min Estimated GFR () 47.9 Estimated GFR (Non- 41.4 BUN/Creatinine Ratio 31.7 Random Glucose 124 mg/dl Calcium Level 8.1 mg/dl Magnesium Level 2.1 mg/dl
--- NOTE | 2017-08-15 10:47 | DIAGNOSTIC IMAGING REPORT ---
CHEST 2 VIEWS ROUTINE CLINICAL HISTORY: 77 years-old Female presenting with right middle lobe consolidation. TECHNIQUE: PA and lateral views of the chest were obtained. COMPARISON: 08/13/2017. FINDINGS: Atherosclerosis of aortic arch. Cardiac silhouette mildly enlarged. Slight improved aeration of the mid lung bilaterally. However, increased right basilar opacity noted. Increased left basilar opacity. Increased bilateral pleural effusions. No pneumothorax. Osteopenia. Upper abdomen normal. IMPRESSION: 1. Increasing bibasilar opacities and pleural effusions though improved aeration of the mid lung bilaterally. Findings could represent decreased pulmonary edema with evolving consolidation and/or atelectasis. Electronically signed by: Kendall Farmer M.D. 08/15/2017 10:45 AM Dictated Date/Time: 08/15/2017 10:43 AM
[2017-08-15] MEDS ORDERED: LEVOFLOXACIN CONSULT ACTIVE PRN (11:06)
[2017-08-15] MEDS ORDERED: SODIUM CHLORIDE 0.9% 1000ML 1,000 ML IV SCH (11:15)
--- NOTE | 2017-08-15 11:16 | Progress Note ---
Medicine Progress Note Date & Time of Visit: Aug 15, 2017 at 10:59. Subjective seen resting in bedside chair comfortable, speaks in sentences with no effort states she feels slightly better than yesterday still has productive cough, no dyspnea no chest pain, palpitations, dizziness, nausea no other symptom Objective Last 8 Hrs Date Time Temp Pulse Resp B/P (MAP) Pulse Ox O2 Delivery O2 Flow Rate FiO2 08/15/17 08:00 96 Nasal Cannula 2.0 08/15/17 07:47 36.5 95 19 106/68 (81) 93 Nasal Cannula 2.0 08/15/17 06:28 83 95/62 (73) 08/15/17 04:00 94 Nasal Cannula 2.0 08/15/17 03:36 36.8 89 20 101/65 (77) 95 Nasal Cannula 2.0 Physical Exam: General- oriented x 3, not in distress, speaks in sentences with no effort Head- atraumatic Eyes- PERRL, EOMI, anicteric ENT- oropharynx clear, (+) dry oral mucosa Neck- supple, no JVD, no adenopathy, no thyromegaly; carotids +2/2, no bruits appreciated Lungs- mild rhonchi right base, no wheezing Heart- regular rhythm; no murmur, normal rate Abdomen- normal bowel sounds, soft, nontender Extremities- no pretibial edema, no calf tenderness; peripheral pulses intact Neuro- alert, oriented x 3; no gross focal deficits Skin- warm & dry Laboratory Results: Last 24 Hours Test 08/15/17 04:22 White Blood Count 16.42 K/uL Red Blood Count 4.12 M/uL Hemoglobin 12.0 g/dL Hematocrit 37.3 % Mean Corpuscular Volume 90.5 fL Mean Corpuscular Hemoglobin 29.1 pg Mean Corpuscular Hemoglobin Concent 32.2 g/dl Platelet Count 162 K/uL Mean Platelet Volume 11.1 fL Neutrophils (%) (Auto) 88.8 % Lymphocytes (%) (Auto) 5.1 % Monocytes (%) (Auto) 5.7 % Eosinophils (%) (Auto) 0.0 % Basophils (%) (Auto) 0.0 % Neutrophils # (Auto) 14.58 K/uL Lymphocytes # (Auto) 0.83 K/uL Monocytes # (Auto) 0.94 K/uL Eosinophils # (Auto) 0.00 K/uL Basophils # (Auto) 0.00 K/uL RDW Standard Deviation 47.3 fL RDW Coefficient of Variation 14.3 % Immature Granulocyte % (Auto) 0.4 % Immature Granulocyte # (Auto) 0.07 K/uL Activated Partial Thromboplast Time 95.6 SECONDS Partial Thromboplastin Ratio 3.7 Sodium Level 135 mmol/L Potassium Level 4.2 mmol/L Chloride Level 101 mmol/L Carbon Dioxide Level 28 mmol/L Anion Gap 6.0 mmol/L Blood Urea Nitrogen 40 mg/dl Creatinine 1.26 mg/dl Est Creatinine Clear Calc Drug Dose 30.1 ml/min Estimated GFR () 47.9 Estimated GFR (Non- 41.4 BUN/Creatinine Ratio 31.7 Random Glucose 124 mg/dl Calcium Level 8.1 mg/dl Magnesium Level 2.1 mg/dl Assessment & Plan This is a 77yo F with no known PMH who presents with worsening cough x 4 days and was found to have R middle lobe PNA and A Fib with RVR. Community acquired PNA Possible COPD Exacerbation Presents with Cough, SOB CXR with R middle lobe consolidation -- afebrile still requiring 2 liters O2 via NC -- repeat CXR: increasing bibasilar infiltrates -- will change Augmentin + Doxy to Levaquin taper Prednisone monitor New onset A Fib with RVR: EKG with rapid A fib at 172 bpm was on Cardizem drip echo-mild to moderate MR otherwise unremarkable study -- transitioned to Metoprolol PO Heparin + Coumadin -- appreciate Cardio recommendations Acute Renal Failure - crea increased to 1.26 -- gentle IV fluids DVT PROPHYLAXIS iv heparin DISPOSITION monitor in tele pt/ot when stable social service for d/c planning Current Inpatient Medications: Current Inpatient Medications Medications (Trade) Dose Ordered Sig/Riana Route Start Time Stop Time Status Last Admin Dose Admin Acetaminophen (Tylenol Tab) 650 mg Q4H PRN PO 08/13/17 15:15 09/12/17 15:14 Ondansetron HCl (Zofran Inj) 4 mg Q6H PRN IV 08/13/17 15:15 09/12/17 15:14 Prednisone (PredniSONE TAB) 40 mg DAILY PO 08/13/17 15:15 08/17/17 09:01 08/15/17 07:45 40 MG Pantoprazole Sodium (Protonix Tab) 40 mg QAM PO 08/14/17 09:00 08/18/17 08:59 08/15/17 07:45 40 MG Heparin Sodium/ Dextrose 500 ml @ 18 mls/hr Q24H PRN IV 08/13/17 16:45 09/12/17 16:44 08/14/17 17:06 20 MLS/HR Amoxicillin/ Clavulanate Potassium (Augmentin Tab) 875 mg BIDM PO 08/14/17 07:30 08/21/17 07:29 08/15/17 07:45 875 MG Aspirin (Ecotrin Tab) 81 mg QAM PO 08/14/17 09:00 09/13/17 08:59 08/15/17 07:45 81 MG Metoprolol Tartrate (Lopressor Tab) 25 mg Q6 PO 08/14/17 00:00 09/13/17 00:00 08/14/17 23:54 25 MG Ipratropium [place] (Atrovent 0.02% 0.5MG/2.5ML Neb) 0.5 mg Q4H PRN INH 08/13/17 20:45 09/12/17 20:44 Levalbuterol (Xopenex 1.25MG/ 0.5ML Neb) 1.25 mg Q4H PRN INH 08/13/17 20:45 09/12/17 20:44 Warfarin Sodium (Coumadin Tab) 5 mg DAILY@16 PO 08/14/17 16:00 09/13/17 15:59 08/14/17 16:52 5 MG Doxycycline Hyclate (Vibramycin Cap) 100 mg BID PO 08/14/17 21:00 08/21/17 07:59 08/15/17 07:45 100 MG
[2017-08-15] MEDS ORDERED: LEVALBUTEROL/IPRATROPIUM NEB INH SCH (12:00)
[2017-08-15 13:46] LABS: PTT PATIENT 59.8 SECONDS (21.0-31.0)
[2017-08-15] MEDS ORDERED: LEVOFLOXACIN / D5W 750 MG in PREMIXED IN D5W 150 ML IV SCH (14:00)
[2017-08-15] MEDS: IPRATROPIUM BROMIDE NEB SOLN 0.02% 2.5 ML VIAL INH SCH ×2 (14:33→19:24)
[2017-08-15] MEDS: LEVALBUTEROL 0.63MG/3 ML NEB INH SCH ×2 (14:33→19:25)
[2017-08-15] MEDS: WARFARIN SOD 5 MG TAB PO SCH (16:31)
[2017-08-15] MEDS: HEPARIN 25,000 UNIT/500ML D5W 500 ML IV PRN (20:51)
[2017-08-16] VITALS (12 sets, daily range): BP systolic 102–135; BP diastolic 54–77; PULSE 62–118; TEMP 36.6–36.8; O2SAT 88–96
[2017-08-16] MEDS: METOPROLOL TARTRATE 25 MG TAB PO SCH ×3 (00:30→11:35)
[2017-08-16 04:55] LABS: HEMOGLOBIN 12.7 g/dL (12.0-16.0); IG# 0.04 K/uL (0.00-0.02); LYMPH % 5.9 %; LYMPH ABS # 0.76 K/uL (1.2-3.4); MEAN CELL VOLUME 90.5 fL (80-100); MEAN CORPUSCULAR HEMOGLOBIN 28.7 pg (25-34); MEAN CORPUSCULAR HGB CONC 31.8 g/dl (32-36); MEAN PLATELET VOLUME 11.2 fL (7.4-10.4); MONO % 5.9 %; MONO ABS # 0.76 K/uL (0.11-0.59); NEUT % 87.9 %; NEUT ABS # 11.27 K/uL (1.4-6.5); PLATELET COUNT 174 K/uL (130-400); RED CELL DISTRIBUTION WIDTH CV 14.2 % (11.5-14.5); RED CELL DISTRIBUTION WIDTH SD 46.9 fL (36.4-46.3); WHITE BLOOD COUNT 12.83 K/uL (4.8-10.8)
[2017-08-16 05:14] LABS: INR 1.5 (0.9-1.1)
[2017-08-16 05:15] LABS: CALCIUM 8.2 mg/dl (8.5-10.1); CREATININE 1.09 mg/dl (0.60-1.20); POTASSIUM 4.2 mmol/L (3.5-5.1)
[2017-08-16 05:29] LABS: PTT PATIENT 88.4 SECONDS (21.0-31.0)
[2017-08-16] MEDS: LEVALBUTEROL 0.63MG/3 ML NEB INH SCH ×3 (07:14→19:50)
[2017-08-16] MEDS: IPRATROPIUM BROMIDE NEB SOLN 0.02% 2.5 ML VIAL INH SCH ×3 (07:14→19:50)
[2017-08-16] MEDS: ASPIRIN 81 MG ECTAB PO SCH (07:43)
[2017-08-16] MEDS: PANTOprazole SOD 40 MG TAB PO SCH (07:43)
--- NOTE | 2017-08-16 10:20 | Cardiology Follow-Up ---
Subjective General Date of Service: Aug 16, 2017. Chief Complaint: Atrial fibrillation Pt evaluation today including: conversation w/ patient, physical exam, chart review, lab review, review of studies, review of inpatient medication list History of Present Illness Patient seen and examined. Feeling considerably better today overall Ongoing cough productive of clear phlegm and chest congestion. No palpitations (chest flutters) Telemetry: Atrial fibrillation currently ~100. Rates relatively well controlled. Allergies Coded Allergies: Cefuroxime (Unverified Allergy, Mild, FACIAL SWELLING, 08/13/17) Social History Smoking Status: Former Smoker Hx Alcohol Use - Type And Amou: No Hx Substance Use - Type And Am: No Problem List Medical Problems: (1) Rapid atrial fibrillation Status: Acute Physical Exam Vital Signs Last Vital Signs Documentation Date Time Temp Pulse Resp B/P (MAP) Pulse Ox O2 Delivery O2 Flow Rate FiO2 08/16/17 08:15 36.8 96 16 135/64 (87) 92 Room Air 08/16/17 08:00 2.0 Physical Exam Constitutional: General Apperance: too thin Level of Distress: NAD Psychiatric: Mental Status: active & alert Lungs: Auscultation: no wheezing, no rales/crackles, deminished air movement, decreased breath sounds, rhonchi Cardiovascular: Heart Auscultation: irregular rate rhythm Abdomen: Bowel Sounds: normal Extremities: no cyanosis, no edema, no clubbing Neurologic: Cranial Nerves: grossly intact Assessment and Plan Assessment and Plan Admission with right middle lobe consolidation, community acquired pneumonia. Emphysema. New onset symptomatic atrial fibrillation of unknown duration [id number]. RECOMMENDATIONS: 1. Change metoprolol tartrate to 50 mg twice a day. 2. Heparin bridge to proper Coumadin anticoagulation. INR Goal 2.0 to 3.0. 3. Digoxin 125 mcg/day may be a future option if needed (would definitely not add this admission since patient was medication naive on presentation and rates are likely to improve further with improvement in the acute pulmonary illness. 4. Community acquired pneumonia treatment as per the Hospitalist Service CARDIOLOGY ATTENDING ADDENDUM: The patient was seen and personally examined. Agree with Dusty Obregon PA-C's findings and plans as documented above with additions as noted below. Subjective: Patient states cough is improving Exam: Irregular rhythm, no murmurs, lung sounds improved Data: Telemetry reveals atrial fibrillation at 100 -119 bpm. Impression: As noted above Plan: Continue heparin and Coumadin, discontinue metoprolol tartrate 25 mg 4 times a day, transitioned to metoprolol tartrate 50 mg twice a day. Orders entered. Laboratory Results Last 24 Hours Test 08/15/17 13:09 08/16/17 04:26 Activated Partial Thromboplast Time 59.8 SECONDS 88.4 SECONDS Partial Thromboplastin Ratio 2.3 3.4 White Blood Count 12.83 K/uL Red Blood Count 4.42 M/uL Hemoglobin 12.7 g/dL Hematocrit 40.0 % Mean Corpuscular Volume 90.5 fL Mean Corpuscular Hemoglobin 28.7 pg Mean Corpuscular Hemoglobin Concent 31.8 g/dl Platelet Count 174 K/uL Mean Platelet Volume 11.2 fL Neutrophils (%) (Auto) 87.9 % Lymphocytes (%) (Auto) 5.9 % Monocytes (%) (Auto) 5.9 % Eosinophils (%) (Auto) 0.0 % Basophils (%) (Auto) 0.0 % Neutrophils # (Auto) 11.27 K/uL Lymphocytes # (Auto) 0.76 K/uL Monocytes # (Auto) 0.76 K/uL Eosinophils # (Auto) 0.00 K/uL Basophils # (Auto) 0.00 K/uL RDW Standard Deviation 46.9 fL RDW Coefficient of Variation 14.2 % Immature Granulocyte % (Auto) 0.3 % Immature Granulocyte # (Auto) 0.04 K/uL Prothrombin Time 15.4 SECONDS Prothromb Time International Ratio 1.5 Sodium Level 139 mmol/L Potassium Level 4.2 mmol/L Chloride Level 106 mmol/L Carbon Dioxide Level 28 mmol/L Anion Gap 5.0 mmol/L Blood Urea Nitrogen 34 mg/dl Creatinine 1.09 mg/dl Est Creatinine Clear Calc Drug Dose 34.7 ml/min Estimated GFR () 57.1 Estimated GFR (Non- 49.3 BUN/Creatinine Ratio 31.1 Random Glucose 110 mg/dl Calcium Level 8.2 mg/dl Magnesium Level 2.3 mg/dl
[2017-08-16] MEDS: WARFARIN SOD 5 MG TAB PO SCH (16:43)
--- NOTE | 2017-08-16 18:17 | Progress Note ---
Medicine Progress Note Date & Time of Visit: Aug 16, 2017 at 18:12. Subjective patient seen sitting up in bedside chair, comfortable states breathing and cough is improving denies chest pain, palpitations, dizziness no other symptoms Objective Last 8 Hrs Date Time Temp Pulse Resp B/P (MAP) Pulse Ox O2 Delivery O2 Flow Rate FiO2 08/16/17 15:52 36.8 103 20 131/73 (92) 91 Room Air 08/16/17 14:14 98 20 92 Room Air 08/16/17 12:00 96 Nasal Cannula 2.0 08/16/17 11:59 36.7 87 16 120/77 (91) 93 Room Air Physical Exam: General- oriented x 3, not in distress, speaks in sentences with no effort Eyes- anicteric ENT- oropharynx clear Neck- supple, no JVD Lungs- mild rhonchi right base, no wheezing Heart- irregularly irregular rhythm; no murmur, normal rate Abdomen- normal bowel sounds, soft, nontender Extremities- no pretibial edema, no calf tenderness; peripheral pulses intact Neuro- alert, oriented x 3; no gross focal deficits Skin- warm & dry Laboratory Results: Last 24 Hours Test 08/16/17 04:26 08/16/17 12:03 White Blood Count 12.83 K/uL Red Blood Count 4.42 M/uL Hemoglobin 12.7 g/dL Hematocrit 40.0 % Mean Corpuscular Volume 90.5 fL Mean Corpuscular Hemoglobin 28.7 pg Mean Corpuscular Hemoglobin Concent 31.8 g/dl Platelet Count 174 K/uL Mean Platelet Volume 11.2 fL Neutrophils (%) (Auto) 87.9 % Lymphocytes (%) (Auto) 5.9 % Monocytes (%) (Auto) 5.9 % Eosinophils (%) (Auto) 0.0 % Basophils (%) (Auto) 0.0 % Neutrophils # (Auto) 11.27 K/uL Lymphocytes # (Auto) 0.76 K/uL Monocytes # (Auto) 0.76 K/uL Eosinophils # (Auto) 0.00 K/uL Basophils # (Auto) 0.00 K/uL RDW Standard Deviation 46.9 fL RDW Coefficient of Variation 14.2 % Immature Granulocyte % (Auto) 0.3 % Immature Granulocyte # (Auto) 0.04 K/uL Prothrombin Time 15.4 SECONDS Prothromb Time International Ratio 1.5 Activated Partial Thromboplast Time 88.4 SECONDS 62.0 SECONDS Partial Thromboplastin Ratio 3.4 2.4 Sodium Level 139 mmol/L Potassium Level 4.2 mmol/L Chloride Level 106 mmol/L Carbon Dioxide Level 28 mmol/L Anion Gap 5.0 mmol/L Blood Urea Nitrogen 34 mg/dl Creatinine 1.09 mg/dl Est Creatinine Clear Calc Drug Dose 34.7 ml/min Estimated GFR () 57.1 Estimated GFR (Non- 49.3 BUN/Creatinine Ratio 31.1 Random Glucose 110 mg/dl Calcium Level 8.2 mg/dl Magnesium Level 2.3 mg/dl Assessment & Plan This is a 77yo F with no known PMH who presents with worsening cough x 4 days and was found to have R middle lobe PNA and A Fib with RVR. Community acquired PNA, Right Middle Lobe Possible COPD Exacerbation Presents with Cough, SOB CXR with R middle lobe consolidation -- afebrile on 2 liters O2 via NC -- repeat CXR: increasing bibasilar infiltrates -- changed Augmentin + Doxy to Levaquin Day 08/16 tapering Prednisone nebs added -- improving monitor New onset A Fib with RVR: EKG with rapid A fib at 172 bpm was on Cardizem drip echo-mild to moderate MR otherwise unremarkable study -- transitioned to Metoprolol PO Heparin + Coumadin -- appreciate Cardio recommendations Acute Renal Failure - crea increased to 1.26 -- gentle IV fluids given resolved DVT PROPHYLAXIS iv heparin DISPOSITION monitor in tele pt/ot when stable social service for d/c planning Current Inpatient Medications: Current Inpatient Medications Medications (Trade) Dose Ordered Sig/Riana Route Start Time Stop Time Status Last Admin Dose Admin Acetaminophen (Tylenol Tab) 650 mg Q4H PRN PO 08/13/17 15:15 09/12/17 15:14 Ondansetron HCl (Zofran Inj) 4 mg Q6H PRN IV 08/13/17 15:15 09/12/17 15:14 Pantoprazole Sodium (Protonix Tab) 40 mg QAM PO 08/14/17 09:00 08/18/17 08:59 08/16/17 07:43 40 MG Heparin Sodium/ Dextrose 500 ml @ 16 mls/hr Q24H PRN IV 08/13/17 16:45 09/12/17 16:44 2/6/18 20:51 18 MLS/HR Aspirin (Ecotrin Tab) 81 mg QAM PO 08/14/17 09:00 09/13/17 08:59 08/16/17 07:43 81 MG Ipratropium [place] (Atrovent 0.02% 0.5MG/2.5ML Neb) 0.5 mg Q4H PRN INH 08/13/17 20:45 09/12/17 20:44 Levalbuterol (Xopenex 1.25MG/ 0.5ML Neb) 1.25 mg Q4H PRN INH 08/13/17 20:45 09/12/17 20:44 Warfarin Sodium (Coumadin Tab) 5 mg DAILY@16 PO 08/14/17 16:00 09/13/17 15:59 08/16/17 16:43 5 MG Levofloxacin (Consult) 1 ea UD PRN N/A 08/15/17 11:06 09/14/17 11:05 Prednisone (PredniSONE TAB) 30 mg DAILY PO 08/16/17 09:00 08/17/17 09:01 08/16/17 07:43 30 MG Ipratropium [place] (Atrovent 0.02% 0.5MG/2.5ML Neb) 0.5 mg Q6RWA INH 08/15/17 12:00 09/14/17 11:59 08/16/17 14:13 0.5 MG Levalbuterol (Xopenex 0.63 Mg/ 3 Ml Neb) 0.63 mg Q6RWA INH 08/15/17 12:00 09/14/17 11:59 08/16/17 14:13 0.63 MG Levofloxacin (Levaquin Tab) 750 mg Q2D@1100 PO 08/17/17 11:00 08/20/17 10:59 Metoprolol Tartrate (Lopressor Tab) 50 mg BID PO 08/16/17 21:00 09/15/17 20:59
[2017-08-16] MEDS: METOPROLOL TARTRATE 50 MG TAB PO SCH (20:41)
[2017-08-17] VITALS (10 sets, daily range): BP systolic 113–140; BP diastolic 74–98; PULSE 68–133; TEMP 36.5–36.7; O2SAT 91–100
[2017-08-17] MEDS: IPRATROPIUM BROMIDE NEB SOLN 0.02% 2.5 ML VIAL INH SCH ×4 (01:50→19:29)
[2017-08-17] MEDS: LEVALBUTEROL 0.63MG/3 ML NEB INH SCH ×4 (01:51→19:29)
[2017-08-17] MEDS: HEPARIN 25,000 UNIT/500ML D5W 500 ML IV PRN ×2 (03:57→06:42)
[2017-08-17 04:58] LABS: EOS % 0.1 %; EOS ABS # 0.01 K/uL (0-0.5); HEMOGLOBIN 12.5 g/dL (12.0-16.0); IG# 0.05 K/uL (0.00-0.02); LYMPH % 12.8 %; MEAN CELL VOLUME 91.3 fL (80-100); MEAN CORPUSCULAR HEMOGLOBIN 29.3 pg (25-34); MEAN CORPUSCULAR HGB CONC 32.1 g/dl (32-36); MEAN PLATELET VOLUME 10.8 fL (7.4-10.4); MONO % 8.9 %; MONO ABS # 0.97 K/uL (0.11-0.59); NEUT % 77.7 %; NEUT ABS # 8.49 K/uL (1.4-6.5); PLATELET COUNT 177 K/uL (130-400); RED CELL DISTRIBUTION WIDTH CV 14.7 % (11.5-14.5); WHITE BLOOD COUNT 10.92 K/uL (4.8-10.8)
[2017-08-17 05:26] LABS: CALCIUM 8.3 mg/dl (8.5-10.1); CREATININE 1.05 mg/dl (0.60-1.20); POTASSIUM 4.2 mmol/L (3.5-5.1)
[2017-08-17 05:29] LABS: PTT PATIENT 98.7 SECONDS (21.0-31.0)
[2017-08-17 05:52] LABS: INR 3.8 (0.9-1.1)
[2017-08-17] MEDS: ASPIRIN 81 MG ECTAB PO SCH (07:39)
[2017-08-17] MEDS: PANTOprazole SOD 40 MG TAB PO SCH (07:40)
[2017-08-17] MEDS: METOPROLOL TARTRATE 50 MG TAB PO SCH ×2 (07:41→20:52)
--- NOTE | 2017-08-17 08:57 | Progress Note ---
Medicine Progress Note Date & Time of Visit: Aug 17, 2017 at 08:54. Subjective no acute events overnight INR 3.8 this AM heparin and coumadin stopped on exam, patient sitting up in bed, alert, comfortable states she continues to feel better denies dyspnea, cough no chest pain, palpitations, dizziness ambulating with no problems no signs of bleeding no other symptoms Objective Last 8 Hrs Date Time Temp Pulse Resp B/P (MAP) Pulse Ox O2 Delivery O2 Flow Rate FiO2 08/17/17 08:00 Nasal Cannula 1.0 08/17/17 07:22 76 20 93 Nasal Cannula 1.0 08/17/17 07:16 36.5 95 20 140/92 (108) 100 Nasal Cannula 1.0 08/17/17 04:00 Nasal Cannula 1.0 08/17/17 03:51 36.7 86 19 129/82 (98) 94 Nasal Cannula 1.0 Physical Exam: General- oriented x 3, not in distress, speaks in sentences with no effort Neck- no JVD Lungs- clear breath sounds bilaterally, no rales/wheezes Heart- irregularly irregular rhythm; no murmur, normal rate Abdomen- normal bowel sounds, soft, nontender Extremities- no pretibial edema, no calf tenderness; peripheral pulses intact Neuro- alert, oriented x 3; no gross focal deficits Skin- warm & dry Laboratory Results: Last 24 Hours Test 08/16/17 12:03 08/17/17 04:33 Activated Partial Thromboplast Time 62.0 SECONDS 98.7 SECONDS Partial Thromboplastin Ratio 2.4 3.8 White Blood Count 10.92 K/uL Red Blood Count 4.27 M/uL Hemoglobin 12.5 g/dL Hematocrit 39.0 % Mean Corpuscular Volume 91.3 fL Mean Corpuscular Hemoglobin 29.3 pg Mean Corpuscular Hemoglobin Concent 32.1 g/dl Platelet Count 177 K/uL Mean Platelet Volume 10.8 fL Neutrophils (%) (Auto) 77.7 % Lymphocytes (%) (Auto) 12.8 % Monocytes (%) (Auto) 8.9 % Eosinophils (%) (Auto) 0.1 % Basophils (%) (Auto) 0.0 % Neutrophils # (Auto) 8.49 K/uL Lymphocytes # (Auto) 1.40 K/uL Monocytes # (Auto) 0.97 K/uL Eosinophils # (Auto) 0.01 K/uL Basophils # (Auto) 0.00 K/uL RDW Standard Deviation 49.0 fL RDW Coefficient of Variation 14.7 % Immature Granulocyte % (Auto) 0.5 % Immature Granulocyte # (Auto) 0.05 K/uL Prothrombin Time 38.7 SECONDS Prothromb Time International Ratio 3.8 Sodium Level 140 mmol/L Potassium Level 4.2 mmol/L Chloride Level 107 mmol/L Carbon Dioxide Level 30 mmol/L Anion Gap 3.0 mmol/L Blood Urea Nitrogen 27 mg/dl Creatinine 1.05 mg/dl Est Creatinine Clear Calc Drug Dose 36.1 ml/min Estimated GFR () 59.7 Estimated GFR (Non- 51.5 BUN/Creatinine Ratio 26.1 Random Glucose 85 mg/dl Calcium Level 8.3 mg/dl Magnesium Level 2.3 mg/dl Assessment & Plan This is a 77yo F with no known PMH who presents with worsening cough x 4 days and was found to have R middle lobe PNA and A Fib with RVR. Community acquired PNA, Right Middle Lobe Possible COPD Exacerbation Presents with Cough, SOB CXR with R middle lobe consolidation -- repeat CXR: increasing bibasilar infiltrates -- changed Augmentin + Doxy to Levaquin Day 3/7 tapering Prednisone nebs added -- remains afebrile now on 1 liter O2 via NC improving monitor New onset A Fib with RVR: EKG with rapid A fib at 172 bpm was on Cardizem drip echo-mild to moderate MR otherwise unremarkable study -- transitioned to Metoprolol PO HR controlled INR 3.8 d/c Heparin + Coumadin repeat INR tomorrow -- appreciate Cardio recommendations Acute Renal Failure - crea increased to 1.26 -- gentle IV fluids given resolved DVT PROPHYLAXIS INR 3.8 hold heparin, coumadin DISPOSITION monitor in tele pt/ot anticipate d/c home when INR trends down Current Inpatient Medications: Current Inpatient Medications Medications (Trade) Dose Ordered Sig/Riana Route Start Time Stop Time Status Last Admin Dose Admin Acetaminophen (Tylenol Tab) 650 mg Q4H PRN PO 08/13/17 15:15 09/12/17 15:14 Ondansetron HCl (Zofran Inj) 4 mg Q6H PRN IV 08/13/17 15:15 09/12/17 15:14 Pantoprazole Sodium (Protonix Tab) 40 mg QAM PO 08/14/17 09:00 08/18/17 08:59 08/17/17 07:40 40 MG Aspirin (Ecotrin Tab) 81 mg QAM PO 08/14/17 09:00 09/13/17 08:59 Future Hold 08/17/17 07:39 81 MG Ipratropium [place] (Atrovent 0.02% 0.5MG/2.5ML Neb) 0.5 mg Q4H PRN INH 08/13/17 20:45 09/12/17 20:44 Levalbuterol (Xopenex 1.25MG/ 0.5ML Neb) 1.25 mg Q4H PRN INH 08/13/17 20:45 09/12/17 20:44 Warfarin Sodium (Coumadin Tab) 5 mg DAILY@16 PO 08/14/17 16:00 09/13/17 15:59 Future Hold 08/16/17 16:43 5 MG Levofloxacin (Consult) 1 ea UD PRN N/A 08/15/17 11:06 09/14/17 11:05 Prednisone (PredniSONE TAB) 30 mg DAILY PO 08/16/17 09:00 08/17/17 09:01 08/17/17 07:39 30 MG Ipratropium [place] (Atrovent 0.02% 0.5MG/2.5ML Neb) 0.5 mg Q6RWA INH 08/15/17 12:00 09/14/17 11:59 08/17/17 07:22 0.5 MG Levalbuterol (Xopenex 0.63 Mg/ 3 Ml Neb) 0.63 mg Q6RWA INH 08/15/17 12:00 09/14/17 11:59 08/17/17 07:22 0.63 MG Levofloxacin (Levaquin Tab) 750 mg Q2D@1100 PO 08/17/17 11:00 08/20/17 10:59 Metoprolol Tartrate (Lopressor Tab) 50 mg BID PO 08/16/17 21:00 09/15/17 20:59 08/17/17 07:41 50 MG
--- NOTE | 2017-08-17 09:43 | Cardiology Follow-Up ---
Subjective General Date of Service: Aug 17, 2017. Chief Complaint: Atrial fibrillation Pt evaluation today including: conversation w/ patient, physical exam, chart review, lab review, review of studies, review of inpatient medication list History of Present Illness Patient seen and examined. Feeling better. Less cough and chest congestion. No chest pain or palpitations Telemetry: Atrial fibrillation currently in the 80's. Rates acceptably controlled. Allergies Coded Allergies: Cefuroxime (Unverified Allergy, Mild, FACIAL SWELLING, 08/13/17) Social History Smoking Status: Former Smoker Hx Alcohol Use - Type And Amou: No Hx Substance Use - Type And Am: No Problem List Medical Problems: (1) Rapid atrial fibrillation Status: Acute Physical Exam Vital Signs Last Vital Signs Documentation Date Time Temp Pulse Resp B/P (MAP) Pulse Ox O2 Delivery O2 Flow Rate FiO2 08/17/17 08:00 Nasal Cannula 1.0 08/17/17 07:22 76 20 93 08/17/17 07:16 36.5 140/92 (108) Physical Exam Constitutional: General Apperance: too thin Level of Distress: NAD Psychiatric: Mental Status: active & alert Lungs: Auscultation: no wheezing, no rales/crackles, deminished air movement, decreased breath sounds, rhonchi Cardiovascular: Heart Auscultation: irregular rate rhythm Abdomen: Bowel Sounds: normal Extremities: no cyanosis, no edema, no clubbing Neurologic: Cranial Nerves: grossly intact Assessment and Plan Assessment and Plan Admission with right middle lobe consolidation, community acquired pneumonia, and new onset symptomatic atrial fibrillation with a rapid ventricular response. [id number]. RECOMMENDATIONS: 1. Discontinue IV Heparin. 2. Hold Coumadin today given the supratherapeutic INR of 3.8 3. Continue metoprolol tartrate at 50 mg twice a day. 4. Digoxin may be needed in the future; not this admission since patient was medication naive and rates are likely to improve with improvement in the acute pulmonary illness. 5. Given her current stability with the atrial fibrillation and the unknown duration, plans are currently for proper anticoagulation for at least three weeks followed by a trial of direct current cardioversion is she does not spontaneously convert back to sinus. 6. Outpatient cardiology follow-up in ~1-2 weeks; office aware - will call patient after discharge. CARDIOLOGY ATTENDING ADDENDUM: The patient was seen and personally examined. Agree with Dusty Obregon PA-C's findings and plans as documented above. S: patient denies palpitations. Cough improved. Telemetry: AF 80-90 bpm. Impression: CAPneumonia, new AF. Plan: meds and follow up as above. Laboratory Results Last 24 Hours Test 08/16/17 12:03 08/17/17 04:33 Activated Partial Thromboplast Time 62.0 SECONDS 98.7 SECONDS Partial Thromboplastin Ratio 2.4 3.8 White Blood Count 10.92 K/uL Red Blood Count 4.27 M/uL Hemoglobin 12.5 g/dL Hematocrit 39.0 % Mean Corpuscular Volume 91.3 fL Mean Corpuscular Hemoglobin 29.3 pg Mean Corpuscular Hemoglobin Concent 32.1 g/dl Platelet Count 177 K/uL Mean Platelet Volume 10.8 fL Neutrophils (%) (Auto) 77.7 % Lymphocytes (%) (Auto) 12.8 % Monocytes (%) (Auto) 8.9 % Eosinophils (%) (Auto) 0.1 % Basophils (%) (Auto) 0.0 % Neutrophils # (Auto) 8.49 K/uL Lymphocytes # (Auto) 1.40 K/uL Monocytes # (Auto) 0.97 K/uL Eosinophils # (Auto) 0.01 K/uL Basophils # (Auto) 0.00 K/uL RDW Standard Deviation 49.0 fL RDW Coefficient of Variation 14.7 % Immature Granulocyte % (Auto) 0.5 % Immature Granulocyte # (Auto) 0.05 K/uL Prothrombin Time 38.7 SECONDS Prothromb Time International Ratio 3.8 Sodium Level 140 mmol/L Potassium Level 4.2 mmol/L Chloride Level 107 mmol/L Carbon Dioxide Level 30 mmol/L Anion Gap 3.0 mmol/L Blood Urea Nitrogen 27 mg/dl Creatinine 1.05 mg/dl Est Creatinine Clear Calc Drug Dose 36.1 ml/min Estimated GFR () 59.7 Estimated GFR (Non- 51.5 BUN/Creatinine Ratio 26.1 Random Glucose 85 mg/dl Calcium Level 8.3 mg/dl Magnesium Level 2.3 mg/dl
[2017-08-17] MEDS: LEVOFLOXACIN 750 MG TAB PO SCH (11:51)
--- NOTE | 2017-08-17 15:30 | Cardiology Progress Note ---
Cardiology Progress Note Date of Service Aug 17, 2017. Cardiology Progress Note With minimal activity, such as walking less than 10 feet to use bathroom , Ventricular rates observed to be 180 bpm. Will add oral short acting diltiazem.
[2017-08-17] MEDS ORDERED: DILTIAZEM HCL 30 MG TAB PO ONE (15:45)
[2017-08-17] MEDS ORDERED: SODIUM CHLORIDE 0.9% 1000ML 1,000 ML IV SCH (17:05)
[2017-08-18] VITALS (9 sets, daily range): BP systolic 108–128; BP diastolic 66–78; PULSE 67–115; TEMP 36.5–36.8; O2SAT 89–98
[2017-08-18 06:15] LABS: INR 3.5 (0.9-1.1)
[2017-08-18] MEDS ORDERED: DILTIAZEM HCL 30 MG TAB PO SCH (07:00)
[2017-08-18] MEDS: IPRATROPIUM BROMIDE NEB SOLN 0.02% 2.5 ML VIAL INH SCH ×3 (07:21→18:57)
[2017-08-18] MEDS: LEVALBUTEROL 0.63MG/3 ML NEB INH SCH ×3 (07:21→18:59)
[2017-08-18] MEDS: METOPROLOL TARTRATE 50 MG TAB PO SCH ×2 (08:39→20:44)
--- NOTE | 2017-08-18 09:48 | Cardiology Follow-Up ---
Subjective General Date of Service: Aug 18, 2017. Chief Complaint: Atrial fibrillation Pt evaluation today including: conversation w/ patient, physical exam, chart review, lab review, review of studies, review of inpatient medication list History of Present Illness Patient seen and examined. No complaints. No chest pain or palpitations. Heart rates are under better control with the addition of diltiazem. Telemetry: Atrial fibrillation currently ~100 bpm. Allergies Coded Allergies: Cefuroxime (Unverified Allergy, Mild, FACIAL SWELLING, 08/13/17) Social History Smoking Status: Former Smoker Hx Alcohol Use - Type And Amou: No Hx Substance Use - Type And Am: No Problem List Medical Problems: (1) Rapid atrial fibrillation Status: Acute Physical Exam Vital Signs Last Vital Signs Documentation Date Time Temp Pulse Resp B/P (MAP) Pulse Ox O2 Delivery O2 Flow Rate FiO2 08/18/17 08:00 Nasal Cannula 1.0 08/18/17 07:21 96 16 97 08/18/17 07:15 36.6 128/77 (94) Physical Exam Constitutional: General Apperance: too thin Level of Distress: NAD Psychiatric: Mental Status: active & alert Lungs: Auscultation: no wheezing, no rales/crackles, deminished air movement, decreased breath sounds, rhonchi Cardiovascular: Heart Auscultation: irregular rate rhythm Abdomen: Bowel Sounds: normal Extremities: no cyanosis, no edema, no clubbing Neurologic: Cranial Nerves: grossly intact Assessment and Plan Assessment and Plan Admission with right middle lobe consolidation, community acquired pneumonia, and new onset symptomatic atrial fibrillation with a rapid ventricular response. [id number]. RECOMMENDATIONS: 1. Hold Coumadin today given the mildly supratherapeutic INR of 3.5 2. Continue metoprolol tartrate at 50 mg twice a day. 3. Change/increase short acting diltiazem (30 TID) to diltiazem CD 120 mg/day 4. Plans are currently for proper anticoagulation for at least three weeks followed by direct current cardioversion if she does not spontaneously convert. 5. Outpatient Cardiology follow-up with Dr. Vivek Hilliard DO, Cardiology, [facility], August 31, 2017, 11:00 AM. CARDIOLOGY ATTENDING ADDENDUM: The patient was seen and personally examined. Agree with Dusty Obregon PA-C's findings and plans as documented above and additions as outlined below. S: pt without complaints. She is eager for discharge. Exam: irregular rhythm, rates much improved to the 90 bpm range compared to 160- 180 yesterday afternoon. CXR improving. Impression and plan as above. Remain in hospital another night to reassess response to diltiazem Cd and watch INR. Laboratory Results Last 24 Hours Test 08/18/17 05:53 Prothrombin Time 35.5 SECONDS Prothromb Time International Ratio 3.5
[2017-08-18 10:14] LABS: HEMATOCRIT 39.9 % (37-47); HEMOGLOBIN 13.1 g/dL (12.0-16.0); MEAN CELL VOLUME 94.5 fL (80-100); MEAN CORPUSCULAR HGB CONC 32.8 g/dl (32-36); MEAN PLATELET VOLUME 11.1 fL (7.4-10.4); PLATELET COUNT 186 K/uL (130-400); RED CELL DISTRIBUTION WIDTH CV 14.8 % (11.5-14.5); RED CELL DISTRIBUTION WIDTH SD 49.9 fL (36.4-46.3); WHITE BLOOD COUNT 8.86 K/uL (4.8-10.8)
[2017-08-18 10:23] LABS: CALCIUM 8.7 mg/dl (8.5-10.1); CREATININE 1.27 mg/dl (0.60-1.20); POTASSIUM 4.5 mmol/L (3.5-5.1)
--- NOTE | 2017-08-18 11:00 | DIAGNOSTIC IMAGING REPORT ---
CHEST 2 VIEWS ROUTINE CLINICAL HISTORY: rml pneumonia COMPARISON STUDY: 08/15/2017 FINDINGS: The heart is mildly enlarged. There is interval decrease in the size the bilateral pleural effusions. There are persistent bibasal airspace opacities IMPRESSION: 1. Stable mild cardiomegaly 2. Decreasing bilateral pleural effusions 3. Persistent bibasilar airspace opacities, atelectatic versus inflammatory Electronically signed by: Ayo Hackett M.D. 08/18/2017 10:58 AM Dictated Date/Time: 08/18/2017 10:56 AM
[2017-08-18] MEDS: DILTIAZEM HCL 120 MG CAPCR PO SCH (11:09)
[2017-08-18] MEDS: SODIUM CHLORIDE 0.9% 1000ML 1,000 ML IV SCH (17:44)
[2017-08-19] VITALS (7 sets, daily range): BP systolic 108–118; BP diastolic 62–74; PULSE 68–90; TEMP 36.2–36.7; O2SAT 91–97
[2017-08-19 05:12] LABS: HEMATOCRIT 40.4 % (37-47); HEMOGLOBIN 13.2 g/dL (12.0-16.0); MEAN CELL VOLUME 91.6 fL (80-100); MEAN CORPUSCULAR HEMOGLOBIN 29.9 pg (25-34); MEAN PLATELET VOLUME 11.2 fL (7.4-10.4); PLATELET COUNT 186 K/uL (130-400); RED CELL DISTRIBUTION WIDTH CV 14.5 % (11.5-14.5); RED CELL DISTRIBUTION WIDTH SD 48.5 fL (36.4-46.3); WHITE BLOOD COUNT 8.93 K/uL (4.8-10.8)
[2017-08-19 05:46] LABS: INR 1.6 (0.9-1.1)
[2017-08-19 05:48] LABS: MEAN CORPUSCULAR HGB CONC 32.7 g/dl (32-36)
[2017-08-19] MEDS: LEVALBUTEROL 0.63MG/3 ML NEB INH SCH (07:04)
[2017-08-19] MEDS: IPRATROPIUM BROMIDE NEB SOLN 0.02% 2.5 ML VIAL INH SCH (07:04)
[2017-08-19] MEDS: DILTIAZEM HCL 120 MG CAPCR PO SCH (08:38)
[2017-08-19] MEDS: METOPROLOL TARTRATE 50 MG TAB PO SCH (08:38)
[2017-08-19] MEDS: SODIUM CHLORIDE 0.9% 1000ML 1,000 ML IV SCH (08:38)
[2017-08-19 08:45] LABS: CALCIUM 8.6 mg/dl (8.5-10.1); CREATININE 1.01 mg/dl (0.60-1.20); POTASSIUM 4.2 mmol/L (3.5-5.1)
[2017-08-19] MEDS: LEVOFLOXACIN 750 MG TAB PO SCH (12:54)
[2017-08-19] MEDS ORDERED: WARFARIN SOD 3 MG TAB PO ONE (17:11)
--- NOTE | 2017-08-19 17:38 | Progress Note ---
Medicine Progress Note Date & Time of Visit: Aug 19, 2017 at 17:35. Subjective delayed entry date of service 08/18/17 sitting up in bed, comfortable breathing and cough improved no chest pain, dyspnea, palpitations no bleeding denies other symptoms Objective Last 8 Hrs Date Time Temp Pulse Resp B/P (MAP) Pulse Ox O2 Delivery O2 Flow Rate FiO2 08/19/17 16:00 Room Air 08/19/17 15:56 36.2 87 17 108/62 (77) 95 Humidified Oxygen 2.0 08/19/17 12:34 36.7 86 19 116/70 (85) 96 Nasal Cannula 2.0 08/19/17 12:00 Room Air Physical Exam: General- oriented x 3, not in distress, speaks in sentences with no effort Neck- no JVD Lungs- clear BS BL Heart- irregularly irregular rhythm; no murmur, normal rate Abdomen- normal bowel sounds, soft, nontender Extremities- no pretibial edema, no calf tenderness; peripheral pulses intact Neuro- alert, oriented x 3; no gross focal deficits Skin- warm & dry Laboratory Results: Last 24 Hours Test 08/19/17 04:19 08/19/17 04:22 08/19/17 07:56 White Blood Count 8.93 K/uL Red Blood Count 4.41 M/uL Hemoglobin 13.2 g/dL Hematocrit 40.4 % Mean Corpuscular Volume 91.6 fL Mean Corpuscular Hemoglobin 29.9 pg Mean Corpuscular Hemoglobin Concent 32.7 g/dl RDW Standard Deviation 48.5 fL RDW Coefficient of Variation 14.5 % Platelet Count 186 K/uL Mean Platelet Volume 11.2 fL Prothrombin Time 16.7 SECONDS Prothromb Time International Ratio 1.6 Sodium Level 140 mmol/L Potassium Level 4.2 mmol/L Chloride Level 103 mmol/L Carbon Dioxide Level 31 mmol/L Anion Gap 6.0 mmol/L Blood Urea Nitrogen 28 mg/dl Creatinine 1.01 mg/dl Est Creatinine Clear Calc Drug Dose 37.5 ml/min Estimated GFR () 62.6 Estimated GFR (Non- 54.0 BUN/Creatinine Ratio 28.1 Random Glucose 84 mg/dl Calcium Level 8.6 mg/dl Assessment & Plan This is a 77yo F with no known PMH who presents with worsening cough x 4 days and was found to have R middle lobe PNA and A Fib with RVR. Community acquired PNA, Right Middle Lobe Possible COPD Exacerbation Presents with Cough, SOB CXR with R middle lobe consolidation -- repeat CXR: increasing bibasilar infiltrates -- changed Augmentin + Doxy to Levaquin Day 10/14 tapering Prednisone nebs -- improving overall New onset A Fib with RVR: EKG with rapid A fib at 172 bpm was on Cardizem drip echo-mild to moderate MR otherwise unremarkable study -- on Metoprolol and Diltiazem PO INR 3.5 repeat INR tomorrow -- appreciate Cardio recommendations Acute Renal Failure - crea increased -- gentle IV fluids DVT PROPHYLAXIS INR 3.5 hold heparin, coumadin DISPOSITION monitor in tele pt/ot anticipate d/c home when INR trends down Current Inpatient Medications: Current Inpatient Medications Medications (Trade) Dose Ordered Sig/Riana Route Start Time Stop Time Status Last Admin Dose Admin Acetaminophen (Tylenol Tab) 650 mg Q4H PRN PO 08/13/17 15:15 09/12/17 15:14 Ondansetron HCl (Zofran Inj) 4 mg Q6H PRN IV 08/13/17 15:15 09/12/17 15:14 Aspirin (Ecotrin Tab) 81 mg QAM PO 08/14/17 09:00 09/13/17 08:59 Future Hold 08/17/17 07:39 81 MG Ipratropium [place] (Atrovent 0.02% 0.5MG/2.5ML Neb) 0.5 mg Q4H PRN INH 08/13/17 20:45 09/12/17 20:44 Levalbuterol (Xopenex 1.25MG/ 0.5ML Neb) 1.25 mg Q4H PRN INH 08/13/17 20:45 09/12/17 20:44 Warfarin Sodium (Coumadin Tab) 5 mg DAILY@16 PO 08/14/17 16:00 09/13/17 15:59 Future Hold 08/16/17 16:43 5 MG Levofloxacin (Consult) 1 ea UD PRN N/A 08/15/17 11:06 09/14/17 11:05 Levofloxacin (Levaquin Tab) 750 mg Q2D@1100 PO 08/17/17 11:00 08/20/17 10:59 08/19/17 12:54 750 MG Metoprolol Tartrate (Lopressor Tab) 50 mg BID PO 08/16/17 21:00 09/15/17 20:59 08/19/17 08:38 50 MG Diltiazem HCl (Cardizem Cd Cap) 120 mg QAM PO 08/18/17 11:30 09/17/17 11:29 08/19/17 08:38 120 MG Sodium Chloride 1,000 ml @ 60 mls/hr [id number] IV 08/18/17 16:45 09/17/17 16:44 08/19/17 08:38 60 MLS/HR Warfarin Sodium (Coumadin Tab) 3 mg DAILY@16 PO 08/20/17 16:00 09/19/17 15:59
--- NOTE | 2017-08-19 17:44 | Progress Note ---
Medicine Progress Note Date & Time of Visit: Aug 19, 2017 at 17:38. Subjective seen resting in bed, just had dinner states she feels fine overall denies chest pain, dyspnea, dizziness no cough, breathing ok denies other symptoms ambulating well states she is ready and would like to be discharged today Objective Last 8 Hrs Date Time Temp Pulse Resp B/P (MAP) Pulse Ox O2 Delivery O2 Flow Rate FiO2 08/19/17 16:00 Room Air 08/19/17 15:56 36.2 87 17 108/62 (77) 95 Humidified Oxygen 2.0 08/19/17 12:34 36.7 86 19 116/70 (85) 96 Nasal Cannula 2.0 08/19/17 12:00 Room Air Physical Exam: General- oriented x 3, not in distress, speaks in sentences with no effort Neck- no JVD Lungs- clear breath sounds bilaterally, no rales/wheezes Heart- irregularly irregular rhythm; no murmur, normal rate Abdomen- normal bowel sounds, soft, nontender Extremities- no pretibial edema, no calf tenderness Neuro- alert, oriented x 3; no gross focal deficits Skin- warm & dry Laboratory Results: Last 24 Hours Test 08/19/17 04:19 08/19/17 04:22 08/19/17 07:56 White Blood Count 8.93 K/uL Red Blood Count 4.41 M/uL Hemoglobin 13.2 g/dL Hematocrit 40.4 % Mean Corpuscular Volume 91.6 fL Mean Corpuscular Hemoglobin 29.9 pg Mean Corpuscular Hemoglobin Concent 32.7 g/dl RDW Standard Deviation 48.5 fL RDW Coefficient of Variation 14.5 % Platelet Count 186 K/uL Mean Platelet Volume 11.2 fL Prothrombin Time 16.7 SECONDS Prothromb Time International Ratio 1.6 Sodium Level 140 mmol/L Potassium Level 4.2 mmol/L Chloride Level 103 mmol/L Carbon Dioxide Level 31 mmol/L Anion Gap 6.0 mmol/L Blood Urea Nitrogen 28 mg/dl Creatinine 1.01 mg/dl Est Creatinine Clear Calc Drug Dose 37.5 ml/min Estimated GFR () 62.6 Estimated GFR (Non- 54.0 BUN/Creatinine Ratio 28.1 Random Glucose 84 mg/dl Calcium Level 8.6 mg/dl Assessment & Plan This is a 77yo F with no known PMH who presents with worsening cough x 4 days and was found to have R middle lobe PNA and A Fib with RVR. Community acquired PNA, Right Middle Lobe Possible COPD Exacerbation Presents with Cough, SOB CXR with R middle lobe consolidation -- repeat CXR: increasing bibasilar infiltrates -- changed Augmentin + Doxy to Levaquin Day 5/7 tapering Prednisone nebs -- improved overall -- d/c plan: Levaquin x 2 more days to complete 7 days Prednisone taper ff up with PCP in 3-5 days New onset A Fib with RVR: EKG with rapid A fib at 172 bpm placed on Cardizem drip initially echo-mild to moderate MR otherwise unremarkable study -- evaluated by [employer] Engineer Dr. Hilliard and PA Dusty Obregon -- on Metoprolol and Diltiazem PO INR 1.6 -- d/c plan: Metoprolol 50mg BID Diltiazem 120mg po daily Coumadin 3mg po daily ff up with Coumadin clinic on Monday (clinic to call patient) ff up with Cardiology clinic in 1-2 weeks (clinic to call patient) Acute Renal Failure -- resolved with IV fluids DVT PROPHYLAXIS INR 3.5 hold heparin, coumadin DISPOSITION d/c home with home health ff up with PCP, Cardiology, Coumadin Clinic as noted above Current Inpatient Medications: Current Inpatient Medications Medications (Trade) Dose Ordered Sig/Riana Route Start Time Stop Time Status Last Admin Dose Admin Acetaminophen (Tylenol Tab) 650 mg Q4H PRN PO 08/13/17 15:15 09/12/17 15:14 Ondansetron HCl (Zofran Inj) 4 mg Q6H PRN IV 08/13/17 15:15 09/12/17 15:14 Aspirin (Ecotrin Tab) 81 mg QAM PO 08/14/17 09:00 09/13/17 08:59 Future Hold 08/17/17 07:39 81 MG Ipratropium [place] (Atrovent 0.02% 0.5MG/2.5ML Neb) 0.5 mg Q4H PRN INH 08/13/17 20:45 09/12/17 20:44 Levalbuterol (Xopenex 1.25MG/ 0.5ML Neb) 1.25 mg Q4H PRN INH 08/13/17 20:45 09/12/17 20:44 Warfarin Sodium (Coumadin Tab) 5 mg DAILY@16 PO 08/14/17 16:00 09/13/17 15:59 Future Hold 08/16/17 16:43 5 MG Levofloxacin (Consult) 1 ea UD PRN N/A 08/15/17 11:06 09/14/17 11:05 Levofloxacin (Levaquin Tab) 750 mg Q2D@1100 PO 08/17/17 11:00 08/20/17 10:59 08/19/17 12:54 750 MG Metoprolol Tartrate (Lopressor Tab) 50 mg BID PO 08/16/17 21:00 09/15/17 20:59 08/19/17 08:38 50 MG Diltiazem HCl (Cardizem Cd Cap) 120 mg QAM PO 08/18/17 11:30 09/17/17 11:29 08/19/17 08:38 120 MG Sodium Chloride 1,000 ml @ 60 mls/hr [id number] IV 08/18/17 16:45 09/17/17 16:44 08/19/17 08:38 60 MLS/HR Warfarin Sodium (Coumadin Tab) 3 mg DAILY@16 PO 08/20/17 16:00 09/19/17 15:59
[2017-08-19] MEDS ORDERED: LVQ750 PO (17:51)
[2017-08-19] MEDS ORDERED: CMD3 PO (17:51)
[2017-08-19] MEDS ORDERED: METO50TA16 PO (17:51)
[2017-08-19] MEDS ORDERED: DILT-202 PO (17:51)
--- NOTE | 2017-08-19 17:56 | Discharge Instructions ---
Discharge Instructions Date of Service Aug 19, 2017. Admission Reason for Admission: New Onset Atrial Fibrillation, Pna Discharge Discharge Diagnosis / Problem: PNEUMONIA, NEW ONSET ATRIAL FIBRILLATION Discharge Goals Goal(s): Diagnostic testing, Therapeutic intervention Activity Recommendations Activity Limitations: as noted below (INCREASE ACTIVITY GRADUALLY TOLERATED) Lifting Limitations: until after follow-up appointment Exercise/Sports Limitations: until after follow-up appointment . Instructions / Follow-Up Instructions / Follow-Up PLEASE REVIEW YOUR NEW MEDICATION LIST AND FOLLOW INSTRUCTIONS CAREFULLY. CALL YOUR PRIMARY CARE PHYSICIAN IMMEDIATELY IF WITH WORSENING OF SYMPTOMS, COUGH, SHORTNESS OF BREATH, PALPITATIONS, DIZZINESS, CHEST PAIN, FEVER/CHILLS , BLEEDING. YOU ARE NOW ON A BLOOD THINNER CALLED COUMADIN (WARFARIN). THIS WILL INCREASE YOUR BLEEDING RISK. COUMADIN CLINIC WILL CALL YOU ON MONDAY REGARDING INSTRUCTIONS ON COUMADIN DOSE. IF YOU HAVE ANY HEAD TRAUMA, GO TO THE ER IMMEDIATELY TO BE EVALUATED. FOLLOW UP WITH PRIMARY CARE PHYSICIAN IN 3-5 DAYS. FOLLOW UP WITH FOOD AND BEVERAGE ASSISTANT MANAGER (HEART DOCTOR) IN 1 WEEK. THE CLINIC WILL CALL YOU FOR YOUR APPOINTMENT SCHEDULE. Current Hospital Diet Patient's current hospital diet: AHA Diet (Heart Healthy) Discharge Diet Recommended Diet: AHA Diet (Heart Healthy) Pending Studies Studies pending at discharge: yes List of pending studies: REPEAT BLOOD WORK C/O THE PRIMARY CARE PHYSICIAN Medical Emergencies . Who to Call and When: Medical Emergencies: If at any time you feel your situation is an emergency, please call 911 immediately. . Non-Emergent Contact Non-Emergency issues call your: Primary Care Provider, Director Of Clinical Applications Call Non-Emergent contact if: you have a fever, you have any medication questions . . "Provider Documentation" section prepared by Freddie Swann. . VTE Core Measure Inpt VTE Proph given/why not?: Unfractionated heparin SQ, Warfarin (Coumadin)
--- NOTE | 2017-08-19 18:00 | Discharge Summary ---
Discharge Summary Date of Service Aug 19, 2017. Discharge Summary Admission Date: Aug 13, 2017 at 15:01 Discharge Date: Aug 19, 2017 Discharge Disposition: Home Principal Diagnosis: Community acquired PNA, Right Middle Lobe Possible COPD Exacerbation Secondary Diagnoses/Problems: Please refer to hospital course below. Procedures: ECHO: * -- Conclusions -- * Atrial fibrillation with controlled ventricular response was present during the echocardiogram examination. * There is no prio study available for comparison. * The left atrial size is normal. * The right atrium is moderately dilated. * Aortic valve sclerosis mild, without significant aortic valvular stenosis. * There is mild to moderate mitral regurgitation. * There is moderate tricuspid regurgitation. * The qualitative LV ejection fraction=55% * The right ventricle is normal in size and function. * Doppler findings do not suggest pulmonary hypertension. CXR: CHEST 2 VIEWS ROUTINE CLINICAL HISTORY: rml pneumonia COMPARISON STUDY: 08/15/2017 FINDINGS: The heart is mildly enlarged. There is interval decrease in the size the bilateral pleural effusions. There are persistent bibasal airspace opacities IMPRESSION: 1. Stable mild cardiomegaly 2. Decreasing bilateral pleural effusions 3. Persistent bibasilar airspace opacities, atelectatic versus inflammatory Consultations: Doctor Of Nurse Anesthesia Practice Dr. Hilliard Pending Studies/Follow-Up: Please refer to hospital course. Medication Reconciliation New Medications: Diltiazem HCl (Diltiazem Cd) 120 Mg Capcr 120 MG PO QAM for 30 Days, #30 TAB 2 Refills Levofloxacin (Levofloxacin) 750 Mg Tab 750 MG PO DAILY for 1 Day, #1 TAB 0 Refills take this on 08/21/17 : Monday Metoprolol Tartrate (Lopressor) (Lopressor) 50 Mg Tab 50 MG PO BID for 30 Days, #60 TAB 2 Refills Warfarin Sod (Coumadin) 3 Mg Tab 3 MG PO DAILY@16 for 15 Days, #15 TAB 1 Refill further instructions on dose to be given by Clinic on Monday08/21/17 Discontinued Medications: [Cough Medicine] () 1 DOSE PO UD Admission Information HPI (per Admitting provider): This is a 77yo F with no known PMH who presents with worsening cough x 4 days. Patient states that over the past few days, she has become SOB with movement. Denies history of asthma, COPD. Does not use home O2. Smoking history but quit in 1974. Does not have a PCP and has not seen a provider in years. Endorses associated chills and body aches but denies fever, sore throat, CP, abd pain, nausea, vomiting or LE swelling. Has been using cough drops and OTC cold medicine (unknown what kind) but does not take any medications regularly. Was found to be tachycardic to 155 in the ED and EKG shows A Fib with RVR. States that she has experienced heart palpitations in the past but denies them currently. Denies a previous diagnosis of A Fib. No lightheadedness, visual changes, chest pain. No history of bleeding. Lives with his sister. Physical Exam (per Admitting): General Appearance: WD/WN, no apparent distress, + pertinent finding ( Breathing comfortably on NC O2. Becomes despneic when asked to sit upright during exam. ) Head: normocephalic, atraumatic Eyes: normal inspection, PERRL, sclerae normal ENT: normal ENT inspection, hearing grossly normal, pharynx normal (moist mucous membranes ) Neck: supple, no adenopathy, thyroid normal, trachea midline Respiratory/Chest: chest non-tender, lungs clear, no respiratory distress, no accessory muscle use, + wheezing (Diffuse, bilateral ) Cardiovascular: no murmur, normal peripheral pulses, + tachycardia Abdomen/GI: non tender, soft Back: normal inspection Extremities/Musculoskelatal: normal inspection, no calf tenderness, no pedal edema Neurologic/Psych: no motor/sensory deficits, alert, normal mood/affect, oriented x 3 Skin: normal color, warm/dry Hospital Course This is a 77yo F with no known PMH who presents with worsening cough x 4 days and was found to have R middle lobe PNA and A Fib with RVR. Community acquired PNA, Right Middle Lobe Possible COPD Exacerbation Presents with Cough, SOB CXR with R middle lobe consolidation -- repeat CXR: increasing bibasilar infiltrates -- changed Augmentin + Doxy to Levaquin Day 5/7 tapering Prednisone nebs -- improved overall -- d/c plan: Levaquin x 2 more days to complete 7 days ff up with PCP in 3-5 days New onset A Fib with RVR EKG with rapid A fib at 172 bpm placed on Cardizem drip initially echo-mild to moderate MR otherwise unremarkable study -- evaluated by Doctor Of Nurse Anesthesia Practice Dr. Hilliard and JIGNA Obregon -- on Metoprolol and Diltiazem PO INR 1.6 -- d/c plan: Metoprolol 50mg BID Diltiazem 120mg po daily Coumadin 3mg po daily ff up with Coumadin clinic on Monday (clinic to call patient) ff up with Cardiology clinic in 1-2 weeks (clinic to call patient) Acute Renal Failure -- resolved with IV fluids DISPOSITION d/c home with home health ff up with PCP, Cardiology, Coumadin Clinic as noted above Total time spent on discharge = 40 minutes This includes examination of the patient, discharge planning, medication reconciliation, and communication with other providers. Discharge Instructions Discharge Instructions Date of Service Aug 19, 2017. Admission Reason for Admission: New Onset Atrial Fibrillation, Pna Discharge Discharge Diagnosis / Problem: PNEUMONIA, NEW ONSET ATRIAL FIBRILLATION Discharge Goals Goal(s): Diagnostic testing, Therapeutic intervention Activity Recommendations Activity Limitations: as noted below (INCREASE ACTIVITY GRADUALLY TOLERATED) Lifting Limitations: until after follow-up appointment Exercise/Sports Limitations: until after follow-up appointment . Instructions / Follow-Up Instructions / Follow-Up PLEASE REVIEW YOUR NEW MEDICATION LIST AND FOLLOW INSTRUCTIONS CAREFULLY. CALL YOUR PRIMARY CARE PHYSICIAN IMMEDIATELY IF WITH WORSENING OF SYMPTOMS, COUGH, SHORTNESS OF BREATH, PALPITATIONS, DIZZINESS, CHEST PAIN, FEVER/CHILLS , BLEEDING. YOU ARE NOW ON A BLOOD THINNER CALLED COUMADIN (WARFARIN). THIS WILL INCREASE YOUR BLEEDING RISK. COUMADIN CLINIC WILL CALL YOU ON MONDAY REGARDING INSTRUCTIONS ON COUMADIN DOSE. IF YOU HAVE ANY HEAD TRAUMA, GO TO THE ER IMMEDIATELY TO BE EVALUATED. FOLLOW UP WITH PRIMARY CARE PHYSICIAN IN 3-5 DAYS. FOLLOW UP WITH COUNTERINTELLIGENCE SPECIALIST (HEART DOCTOR) IN 1 WEEK. THE CLINIC WILL CALL YOU FOR YOUR APPOINTMENT SCHEDULE. Current Hospital Diet Patient's current hospital diet: AHA Diet (Heart Healthy) Discharge Diet Recommended Diet: AHA Diet (Heart Healthy) Pending Studies Studies pending at discharge: yes List of pending studies: REPEAT BLOOD WORK C/O THE PRIMARY CARE PHYSICIAN Medical Emergencies . Who to Call and When: Medical Emergencies: If at any time you feel your situation is an emergency, please call 911 immediately. . Non-Emergent Contact Non-Emergency issues call your: Primary Care Provider, Doctor Of Nurse Anesthesia Practice Call Non-Emergent contact if: you have a fever, you have any medication questions . . "Provider Documentation" section prepared by Freddie Swann. . VTE Core Measure Inpt VTE Proph given/why not?: Unfractionated heparin SQ, Warfarin (Coumadin)
--- NOTE | 2017-08-19 20:29 | Progress Note ---
Progress Note Date of Service Aug 19, 2017. Progress Note 08/19 (2029): Contacted by nurse manager department in ICU regarding this patient. She is unable to afford the meds given to her today and is coming back to burr picker a 3 day supply from our pharmacy who is authorizing a homepack for each. Spoke with pharmacist, Kerry, who requested I put them in as a non-formulary. The following meds were filled for her: Diltiazem CD 120mg PO daily Levofloxacin 750mg PO x 1 dose on 08/21 Metoprolol 50mg PO BID Warfarin 3mg PO daily Karlee Tavarez from [facility] will follow-up with her on Monday. Iram Garcia DO [facility]
[2017-08-19] MEDS ORDERED: NON-FORMULARY MEDICATION SCH ×4 (20:30)
[2017-08-19] MEDS ORDERED: LEVOFLOXACIN 750 MG TAB PO SCH (20:45)
[2017-08-19] MEDS ORDERED: WARFARIN SOD 3 MG TAB PO SCH (20:45)
[2017-08-19] MEDS ORDERED: METOPROLOL TARTRATE 50 MG TAB PO SCH (20:45)
[2017-08-19] MEDS ORDERED: DILTIAZEM HCL 120 MG CAPCR PO SCH (20:45)
[2017-08-20] MEDS ORDERED: WARFARIN SOD 3 MG TAB PO SCH (16:00)
== END 2017-08-19 18:39 | disposition home or self-care (01) | DRG 308 ==
LOC: C.EDB 12:13 → C.2T 15:01 → ENRESERV 15:30
PROVIDERS: ADMIT Family Medicine; ATTEND Internal Medicine
DX: I48.91 Unspecified atrial fibrillation (principal); J18.9 Pneumonia, unspecified organism; J44.0 Chronic obstructive pulmonary disease with (acute) lower respiratory infection; J44.1 Chronic obstructive pulmonary disease with (acute) exacerbation; N17.9 Acute kidney failure, unspecified; Z87.891 Personal history of nicotine dependence; Z88.1 Allergy status to other antibiotic agents; Z83.3 Family history of diabetes mellitus; Z82.49 Family history of ischemic heart disease and other diseases of the circulatory system; Z82.5 Family history of asthma and other chronic lower respiratory diseases; Z81.8 Family history of other mental and behavioral disorders

== ENCOUNTER → 2017-10-24 | Day surgery (SDC) | payer OTHER ==
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
[~2017-10-24] VITALS: Ht 160 cm; Wt 58.0 kg
[~2017-10-24] MED LIST changes: +AMIO200T4 PO; +CMD3 PO; +DILT-202 PO; +FURO-85 PO; +LIDOCAINE HCL 2% 2 ML VIAL (20MG/ML) ONE; +LPR25 PO; +LVQ750 PO; +METO50TA16 PO; -PRED50TA PO; +PROPOFOL IV EMULSION 10 MG/ML 20 ML VIAL IV ONE
[2017-10-24 07:09] VITALS: BP 143/84; PULSE 76; TEMP 36.8; O2SAT 98; Ht 160 cm; Wt 58.0 kg
[2017-10-24 07:40] VITALS: BP 145/72; PULSE 75; O2SAT 91
[2017-10-24 07:45] VITALS: BP 120/51; PULSE 81; O2SAT 91
--- NOTE | 2017-10-24 08:05 | Cardioversion ---
Electricial Cardioversion Rpt Date of Service: 10/24/17 Electrical Cardioversion Rprt Procedure Date Oct 24, 2017. Pre-Procedure Diagnosis atrial fibrillation Post-Procedure Diagnosis continued atrial fibrillation Procedure(s) Performed direct current cardioversion Lubricator Granulator Asuncion Hilliard DO Predictive Maintenance Technician(s) not applicable Estimated Blood Loss none Preliminary Findings After informed consent was obtained and a time out was performed the patient received two doses of synchronized energy of 250 J and 360 J, with unsuccessful cardioversion. Recommendations Continue rate control and anticoagulation. Specimens none Anesthesia Dr Gonzalez of anesthesia, lidocaine 60 mg IV, propofol 40 mg IV Complication(s) None Disposition Recover in cardiac pathology laboratory aides teacher suite, then discharge to home.
--- NOTE | 2017-10-24 08:24 | Discharge Instructions ---
Discharge Instructions Procedure Procedure Date: Oct 24, 2017. Reason for Visit: atrial fibrillation Discharge Discharge Date: Oct 24, 2017. Discharge Diagnosis: persistent atrial fibrillation, unsuccessful cardioversion. Last Recorded Wt (Kilograms): 58 Anesthesia Post Anesthesia Instructions: If you have had General Anesthesia or IV Sedation: * Do not drive today. * Resume driving when surgeon permits. * Do not make important decisions or sign legal documents today. * Call surgeon for: 1. Temperature elevations greater than 101 degrees F. 2. Uncontrollable pain. 3. Excessive bleeding. 4. Persistent nausea and vomiting. 5. Medication intolerance (nausea, vomiting or rash). * For nausea and vomiting use only clear liquids such as: tea, soda, bouillon until nausea subsides, then gradually increase diet as tolerated. * If you have any concerns or questions, call your surgeon's office. If physician is unavailable and it is an emergency, call 911 or go to the nearest emergency room. Instructions Activity Recommendations: limitations as noted below, resume regular activity Recommended Home Diet: resume previous diet Allergies: Coded Allergies: Cefuroxime (Unverified Allergy, Mild, FACIAL SWELLING, 08/13/17) Uncoded Allergies: SULFA (Allergy, Mild, ., 10/24/17) Provider Instructions ACTIVITY RECOMMENDATIONS: Resume activities as tolerated with no limitations unless specified. _x_ No lifting over _10_ pounds for 24 hours. _x_ Do not engage in vigorous exercise, sexual activity, or sports for 24 hours. _x_ Do not drive or operate any motorized equipment for 24 hours. x__ You may return to work/school tomorrow. Follow [facility] Recommendations: Call your doctor if: * Temperature above 101 degrees * Pain not relieved by pain medicine ordered * There is increased drainage or redness from any incision * You have any unanswered questions or concerns. Your Doctors Instructions noted above were prepared by provider Vivek Hilliard. Patient Signature Section: Patient Instructions Signature Page Melissa Hunt Patient (or Guardian) Signature/Date: I have read and understand the instructions given to me by my caregivers. Caregiver/RN/Doctor Signature/Date: The above-named patient and/or guardian has received patient instructions on this date. + Original Patient Signature Page (only) stays with chart. Please make copy for patient.
--- NOTE | 2017-10-24 08:32 | Cardiology Progress Note ---
Cardiology Progress Note Date of Service Oct 24, 2017. Cardiology Progress Note Unsuccessful cardioversion. Plan to discontinue amiodarone, and proceed with rate control and anticoagulation. Will increase metoprolol to 75 mg by mouth two times per day.
[2017-10-24 08:45] VITALS: BP 130/66; PULSE 74; O2SAT 95
--- NOTE | 2017-10-24 08:49 | Anesthesiology Progress Note ---
Anesthesia Post Op Note Date & Time Oct 24, 2017 at 08:49 Vital Signs Pain Intensity: 0 Vital Signs Past 12 Hours Date Time Temp Pulse Resp B/P (MAP) Pulse Ox O2 Delivery O2 Flow Rate FiO2 10/24/17 08:45 74 16 130/66 (87) 95 Room Air 10/24/17 08:30 77 16 132/62 (85) 95 Room Air 10/24/17 08:15 75 18 136/68 (90) 95 Room Air 10/24/17 08:10 76 16 136/69 (91) 95 Room Air 10/24/17 08:00 73 18 125/65 (85) 98 Room Air 10/24/17 07:50 73 18 119/59 (79) 98 Room Air 10/24/17 07:45 81 18 120/51 91 Nasal Cannula 6 10/24/17 07:40 75 18 145/72 91 Nasal Cannula 6 10/24/17 07:09 36.8 76 18 143/84 (103) 98 Room Air Notes Mental Status: alert / awake / arousable, participated in evaluation Pt Amnestic to Procedure: Yes Nausea / Vomiting: adequately controlled Pain: adequately controlled Airway Patency, RR, SpO2: stable & adequate BP & HR: stable & adequate Hydration State: stable & adequate Anesthetic Complications: no major complications apparent
== END | disposition home or self-care (01) ==
LOC: C.CATH 06:02
PROVIDERS: ATTEND Specialist
DX: I48.1 Persistent atrial fibrillation (principal); I11.0 Hypertensive heart disease with heart failure; I50.9 Heart failure, unspecified; J44.9 Chronic obstructive pulmonary disease, unspecified; Z83.3 Family history of diabetes mellitus; Z82.49 Family history of ischemic heart disease and other diseases of the circulatory system; Z83.6 Family history of other diseases of the respiratory system; Z87.891 Personal history of nicotine dependence; Z88.1 Allergy status to other antibiotic agents; Z79.899 Other long term (current) drug therapy; Z79.01 Long term (current) use of anticoagulants